=== PATIENT | female | born 1965 | race Caucasian/White ===

== ENCOUNTER 2016-06-26 12:17 | Inpatient (IN) | payer OTHER ==
[2016-06-26 15:03] VITALS: BMI 30.2
--- NOTE | 2016-06-26 17:07 | HP ---
COWS - Scale Resting Pulse: 1= [place] 81-100 Sweatin= Chills/Flushing Restless Observation: 3= Extraneous Movement Pupil Size: 2= Moderately Dilated Bone or Joint Aches: 4=Acute Joint/Muscle Pain Runny Nose/ Eye Tearin= Nasal Congestion GI Upset > 30mins: 1= Stomach Cramp Tremor Observation: 1= Tremor [place], Not Seen Yawning Observation: 2= >3x During Session Anxiety or Irritability: 1=Feels Anxious/Irritable Goose Flesh Skin: 0=Smooth Skin COWS Score: 17 [facility] Chief Complaint: DETOX TX FOR HEROIN DEPENDENCE Allergies/Adverse Reactions: Allergies Allergy/AdvReac Type Severity Reaction Status Date / Time egg Allergy Severe Rash Verified 06/26/16 16:28 No Known Drug Allergies Allergy Verified 06/26/16 16:28 History of Present Illness: 51 Y/O FEMALE WITH A HX OF HEROIN,COCAINE AND MARIJUANA DEPENDENCE SEEKING DETOX TX. Exam Limitations: No Limitations - Ebola screening Have you traveled outside of the country in the last 21 days: No Have you had contact with anyone from an Ebola affected area: No Have you been sick,other than usual withdrawal symptoms: No Do you have a fever: No - Review of Systems Constitutional: Chills, Loss of Appetite, Night Sweats, Changes in sleep EENT: reports: Blurred Vision, Tearing, Nose Congestion, Dental Problems ( MISSING TOOTH) Respiratory: reports: Shortness of Breath (COPD ON MDI-SPIRIVA AND ALBUTEROL), Wheezing Cardiac: reports: Lightheadedness GI: reports: Constipated, Diarrhea, Nausea, Poor Appetite, Poor Fluid Intake, Vomiting : reports: No Symptoms Reported Musculoskeletal: reports: Back Pain, Joint Pain, Muscle Pain Integumentary: reports: No Symptoms Reported Neuro: reports: Headache, Tremors, Unsteady Gait, Dizziness Endocrine: reports: No Symptoms Reported Hematology: reports: No Symptoms Reported Psychiatric: reports: Orientated x3, Anxious, Depressed Other Systems: Reviewed and Negative Patient History - Patient Medical History Hx Anemia: Yes (NO CURRENT TX) Hx Chronic Obstructive Pulmonary Disease (COPD): Yes (ON SPIRIVA AND ALBUTEROL INHALERS) Hx Cancer: No Hx Cardiac Disorders: No Hx Congestive Heart Failure: No Hx Hypertension: Yes (NON COMPLIANT WITH MEDS.) Hx Hypercholesterolemia: No Hx Pacemaker: No HX Cerebrovascular Accident: No Hx Seizures: No Hx Dementia: No Hx Diabetes: No Hx Gastrointestinal Disorders: No Hx Liver Disease: No Hx Genitourinary Disorders: No Hx Sexually Transmitted Disorders: No Hx Renal Disease (ESRD): No Hx Thyroid Disease: No Hx Human Immunodeficiency Virus (HIV): No ( NEGATIVE HX) Hx Hepatitis C: No (NEGATIVE HX) Hx Depression: Yes Hx Suicide Attempt: No (DENIES) Hx Bipolar Disorder: Yes (On meds. previously, none taken for at least 1 year.) Hx Schizophrenia: No - Patient Surgical History Past Surgical History: No Hx Neurologic Surgery: No Hx Cataract Extraction: No Hx Cardiac Surgery: No Hx Lung Surgery: No Hx Breast Surgery: No Hx Breast Biopsy: No Hx Abdominal Surgery: No Hx Appendectomy: No Hx Cholecystectomy: No Hx Genitourinary Surgery: No Hx Section: No Hx Orthopedic Surgery: No Hx Hysterectomy: No Anesthesia Reaction: No - PPD History Previous Implant?: Yes Documented Results: Negative w/proof Implanted On Prior [facility] Admission?: Yes Date: 03/14/16 Results: 0 MM PPD to be Administered?: No - Reproductive History Patient is a Female of Child Bearing Age (11 -55 yrs old): Yes Last Menstrual Period: 03/10/16 Patient : No - Smoking Cessation Smoking history: Current every day smoker Have you smoked in the past 12 months: Yes Aproximately how many cigarettes per day: 60 Cigars Per Day: 0 Hx Chewing Tobacco Use: No Initiated information on smoking cessation: Yes 'Breaking Loose' booklet given: 06/26/16 - Substance & Tx. History Hx Alcohol Use: No (DENIES) Hx Substance Use: Yes (HEROIN) Substance Use Type: Heroin Hx Substance Use Treatment: Yes - Substances Abused Heroin Route: Inhalation Frequency: Daily Amount used: 15 BAGS Age of first use: 49 Date of Last Use: 06/26/16 Family Disease History - Family Disease History Family Disease History: [place]: Grandparent (OVARIAN CANCER-), Father ( THROAT-), Other: Mother (ASTHMA.) Admission Physical Exam BHS - Vital Signs Vital Signs: Vital Signs - 24 hr 06/26/16 15:01 Temperature 98.6 F Pulse Rate 86 Respiratory 18 Rate Blood Pressure 132/80 - Physical General Appearance: Yes: Moderate Distress, Irritable, Anxious HEENTM: Yes: EOMI, Normocephalic, SHIVA, Pharynx Normal Respiratory: Yes: Chest Non-Tender, Lungs Clear, Normal Breath Sounds, No Respiratory Distress Neck: Yes: No masses,lesions,Nodules, Supple, Trachea in good position Breast: Yes: Breast Exam Deferred Cardiology: Yes: Regular Rhythm, Regular Rate, S1, S2 Abdominal: Yes: Normal Bowel Sounds, Non Tender, Soft Genitourinary: Yes: Other (N/C) Back: Yes: Within Normal Limits Musculoskeletal: Yes: full range of Motion, Gait Steady Extremities: Yes: Normal Range of Motion, Non-Tender Neurological: Yes: 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-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 NML intact, Fully Oriented, Alert Integumentary: Yes: Dry, Warm Lymphatic: Yes: Within Normal Limits - Diagnostic (1) COPD (chronic obstructive pulmonary disease) Current Visit: Yes Status: Chronic Qualifiers: COPD type: unspecified COPD Qualified Code(s): J44.9 - Chronic obstructive pulmonary disease, unspecified (2) HTN (hypertension) Current Visit: Yes Status: Chronic Qualifiers: Hypertension type: essential hypertension Qualified Code(s): I10 - Essential (primary) hypertension (3) Nicotine dependence Current Visit: Yes Status: Acute Qualifiers: Nicotine product type: cigarettes Substance use status: in withdrawal Qualified Code(s): F17.213 - Nicotine dependence, cigarettes, with withdrawal (4) Opioid dependence with withdrawal Current Visit: Yes Status: Acute (5) Cocaine dependence, uncomplicated Current Visit: Yes Status: Acute Cleared for Admission [facility] - Detox or Rehab [facility] Level of Care: Medically Managed Detox Regimen/Protocol: Methadone [facility] Breath Alcohol Content Breath Alcohol Content: 0 Urine Drug Screen - Results Drug Screen Negative: No Urine Drug Screen Results: MANJINDER-Cocaine, OPI-Opiates, OXY-Oxycodone
[2016-06-26] MEDS ORDERED: ACETAMINOPHEN 325 MG TABLET (FP) PO PRN (18:00)
[2016-06-26] MEDS ORDERED: P-EPHED 60MG/TRIPROLIDI 2.5MG TABLET PO PRN (18:00)
[2016-06-26] MEDS ORDERED: hydrOXYzine PAMOATE 25 MG CAPSULE (FP) PO PRN (18:00)
[2016-06-26] MEDS ORDERED: diphenhydrAMINE HCL 50 MG CAPSULE PO PRN (18:00)
[2016-06-26] MEDS ORDERED: MENTHOL/PHENOL 1 EACH UD MM PRN (18:00)
[2016-06-26] MEDS ORDERED: MAGNESIUM CITRATE 300 ML BOTTLE PO PRN (18:00)
[2016-06-26] MEDS ORDERED: NICOTINE POLACRILEX 4 MG GUM BC PRN (18:00)
[2016-06-26] MEDS ORDERED: guaiFENesin/D-METHORPHAN HB 10 ML UNIT-DOSE CUPS PO PRN (18:00)
[2016-06-26] MEDS ORDERED: LOPERAMIDE HCL 2 MG CAPSULE PO PRN (18:00)
[2016-06-26] MEDS ORDERED: MAGNESIUM HYDROX 2400MG/30ML ORAL SUSPENSION 30 ML CUP PO PRN (18:00)
[2016-06-26] MEDS ORDERED: ALBUTEROL SO4 6.7 GM HFA INHALER IH PRN (18:04)
[2016-06-26] MEDS ORDERED: METHADONE HCL 10 MG TABLET (FOR DETOX USE ONLY) PO ONE ×2 (18:45→23:00)
[2016-06-26] MEDS: NICOTINE 21 MG/24 HOURS TOPICAL PATCH TD SCH (19:09)
[2016-06-26] MEDS: amLODIPine BESYLATE 10 MG TABLET (FP) PO SCH (19:09)
[2016-06-26] MEDS: HYDROCHLOROTHIAZIDE 25 MG TABLET (FP) PO SCH (19:10)
[2016-06-26] MEDS: diazePAM 5 MG TABLET PO PRN ×2 (19:10→23:00)
[2016-06-26] MEDS: ACLIDINIUM BROMIDE 400 MCG/INH AERO.POWD IH SCH (22:59)
[2016-06-26] MEDS: THIAMINE HCL 100 MG TABLET (FP) PO SCH (23:00)
[2016-06-26] MEDS: BUDESONIDE/FORMETEROL FUMARATE 80/4.5 mcg INHALER IH SCH (23:00)
[2016-06-27] MEDS: diazePAM 5 MG TABLET PO PRN ×3 (07:51→21:07)
[2016-06-27] MEDS: IBUPROFEN 400 MG TABLET (FP) PO PRN ×2 (07:52→20:31)
[2016-06-27 09:41] LABS: MCH 29.2 pg (25.7-33.7); MCHC 32.3 g/dl (32.0-36.0); MEAN CELL VOLUME 90.2 fl (80-96); MEAN PLT VOLUME 10.6 fl (7.5-11.1); PLATELET COUNT 171 K/MM3 (134-434); RDW 14.1 % (11.6-15.6); WHITE BLOOD COUNT 7.7 K/mm3 (4.0-10.0)
[2016-06-27] MEDS ORDERED: METHADONE HCL 10 MG TABLET (FOR DETOX USE ONLY) PO ONE (10:00)
[2016-06-27] MEDS: PRENATAL VITAMINS W/ FOLIC ACID TABLET (FP) PO SCH (10:23)
[2016-06-27] MEDS: BUDESONIDE/FORMETEROL FUMARATE 80/4.5 mcg INHALER IH SCH ×2 (10:24→21:10)
[2016-06-27] MEDS: ACLIDINIUM BROMIDE 400 MCG/INH AERO.POWD IH SCH ×2 (10:24→21:10)
[2016-06-27] MEDS: amLODIPine BESYLATE 10 MG TABLET (FP) PO SCH (10:25)
[2016-06-27] MEDS: HYDROCHLOROTHIAZIDE 25 MG TABLET (FP) PO SCH (10:25)
[2016-06-27] MEDS: NICOTINE 21 MG/24 HOURS TOPICAL PATCH TD SCH (10:27)
[2016-06-27 10:35] LABS: ALBUMIN 4.1 g/dl (3.4-5.0); ALK PHOS 116 U/L (45-117); ANION GAP 11 (8-16); BILIRUBIN,TOTAL 0.3 mg/dL (0.2-1.0); CALCIUM 9.2 mg/dL (8.5-10.1); CO2 25 mmol/L (21-32); CREATININE 0.9 mg/dL (0.55-1.02); GLUCOSE,RANDOM 52 mg/dL (74-106); SGOT/AST 11 U/L (15-37); SGPT/ALT 17 U/L (12-78); TOT PROT 7.7 g/dl (6.4-8.2)
--- NOTE | 2016-06-27 11:21 | PN ---
BHS COWS - Scale Resting Pulse: 0= [place] 80 or Below Sweatin= Chills/Flushing Restless Observation: 1= Difficult to Sit Still Pupil Size: 1= Pupils >than Normal Bone or Joint Aches: 2= Severe Diffuse Aches Runny Nose/ Eye Tearin= Nasal Congestion GI Upset > 30mins: 1= Stomach Cramp Tremor Observation of Outstretched Hands: 0= None Yawning Observation: 0= None Anxiety or Irritability: 2=Irritable/Anxious Goose Flesh Skin: 0=Smooth Skin COWS Score: 9 BHS Progress Note (SOAP) Subjective: interrupted sleep, bodyaches, leg pains Objective: 06/27/16 11:21 Vital Signs Temperature 98.6 F 06/27/16 10:57 Pulse Rate 117 H 06/27/16 10:57 Respiratory Rate 16 06/27/16 10:57 Blood Pressure 163/89 06/27/16 10:57 O2 Sat by Pulse Oximetry (%) Laboratory Tests 06/27/16 06/27/16 06:00 06:00 WBC 7.7 D RBC 4.97 Hgb 14.5 Hct 44.8 MCV 90.2 MCHC 32.3 RDW 14.1 Plt Count 171 MPV 10.6 Sodium 139 Potassium 4.3 Chloride 103 Carbon Dioxide 25 Anion Gap 11 BUN 13 Creatinine 0.9 D Creat Clearance w eGFR > 60 Random Glucose 52 L D Calcium 9.2 Total Bilirubin 0.3 D AST 11 L ALT 17 D Alkaline Phosphatase 116 D Total Protein 7.7 Albumin 4.1 pt aox3 in nad ambulating Assessment: 06/27/16 11:21 withdrawal sx;s Plan: cont. detox increase fluids motrin prn flexeril tid/prn
[2016-06-27] MEDS: CYCLOBENZAPRINE HCL 10 MG TABLET (FP) PO PRN ×2 (12:06→21:07)
--- NOTE | 2016-06-27 12:09 | CONSULT ---
[facility] Psychiatric Consult - Data Date of interview: 06/27/16 Admission source: [facility] Identifying data: Readmission to [facility] for this 51 y/o female seeking detox treatment for heroin and cocaine dependence.Patient is single,a mother of one,domiciled,unemployed and supporeted on food stamps. Substance Abuse History: - Smoking Cessation. Smoking history: Current every day smoker. Have you smoked in the past 12 months: Yes. Aproximately how many cigarettes per day: 60. Cigars Per Day: 0. Hx Chewing Tobacco Use: No. Initiated information on smoking cessation: Yes. 'Breaking Loose' booklet given : 06/26/16. - Substance & Tx. History. Hx Alcohol Use: No (DENIES). Hx Substance Use: Yes (HEROIN). Substance Use Type: Heroin. Hx Substance Use Treatment: Yes. - Substances Abused. Heroin. Route: Inhalation. Frequency : Daily. Amount used: 15 BAGS. Age of first use: 49. Date of Last Use: . Confirmed by patient. Medical History: COPD and hypertension. Psychiatric History: Remote history of one psychiatric hopspitalization at [facility] in [place] (10 years ago).Diagnosed with Bipolar Disorder.Used to be on seroquel,ambien,trazodone and sertraline.Patient states that she is in [facility] the [place].Ms Fisher requests that seroquel and zoloft be added to her current regimen of medications.No reported history of suicide attempts. Physical/Sexual Abuse/Trauma History: Patient denies. Additional Comment: Urine Drug Screen Results: MANJINDER-Cocaine, OPI-Opiates, OXY- Oxycodone.Noted. Mental Status Exam - Mental Status Exam Alert and Oriented to: Time, Place, Person Cognitive Function: Good Patient Appearance: Unkempt, Disheveled (pierced/ringed right nostril ) Mood: Withdrawn, Anxious, Apprehensive Affect: Mood Congruent Patient Behavior: Fatigued, Appropriate, Cooperative Speech Pattern: Clear Voice Loudness: Normal Thought Process: Goal Oriented Thought Disorder: Not Present Hallucinations: Denies Suicidal Ideation: Denies Homicidal Ideation: Denies Insight/Judgement: Poor Sleep: Well Appetite: Good Muscle strength/Tone: Normal Gait/Station: Normal Psychiatric Findings - Problem List ([place] 1, 2,3) (1) Opioid dependence with withdrawal Current Visit: Yes Status: Acute (2) Cocaine dependence, uncomplicated Current Visit: Yes Status: Acute (3) Cannabis dependence, uncomplicated Current Visit: Yes Status: Acute (4) Nicotine dependence Current Visit: Yes Status: Acute Qualifiers: Nicotine product type: cigarettes Substance use status: in withdrawal Qualified Code(s): F17.213 - Nicotine dependence, cigarettes, with withdrawal (5) Substance induced mood disorder Current Visit: Yes Status: Acute (6) MDD (major depressive disorder), recurrent episode, moderate Current Visit: Yes Status: Chronic (7) COPD (chronic obstructive pulmonary disease) Current Visit: Yes Status: Chronic Qualifiers: COPD type: unspecified COPD Qualified Code(s): J44.9 - Chronic obstructive pulmonary disease, unspecified (8) HTN (hypertension) Current Visit: Yes Status: Chronic Qualifiers: Hypertension type: essential hypertension Qualified Code(s): I10 - Essential (primary) hypertension - Initial Treatment Plan Initial Treatment Plan: Psychoeducation.Detoxification.Medications : seroquel 100 mg po hs + zoloft 50 mg po daily.Side effects/benefits discussed with patient.Agrees with this careplan.Observation.
[2016-06-27] MEDS: SERTRALINE HCL 50 MG TABLET (FP) PO SCH (14:11)
[2016-06-27] MEDS: THIAMINE HCL 100 MG TABLET (FP) PO SCH (21:07)
[2016-06-27] MEDS: QUEtiapine FUMARATE 100 MG TABLET (FP) PO SCH (21:07)
--- NOTE | 2016-06-27 23:39 | EKG ---
Test Reason : Blood Pressure : / mmHG Vent. Rate : 070 BPM Atrial Rate : 070 BPM P-R Int : 156 ms QRS Dur : 084 ms QT Int : 404 ms P-R-T Axes : 018 076 021 degrees QTc Int : 436 ms NORMAL SINUS RHYTHM NONSPECIFIC T WAVE ABNORMALITY ABNORMAL ECG NO PREVIOUS ECGS AVAILABLE Confirmed by JAS SLATER MD ([id number]) on 06/27/2016 11:39:06 PM Referred By: Confirmed By:JAS SLATER MD
[2016-06-28] MEDS: CYCLOBENZAPRINE HCL 10 MG TABLET (FP) PO PRN ×2 (07:37→22:41)
[2016-06-28] MEDS ORDERED: METHADONE HCL 5 MG TABLET (FOR DETOX USE ONLY) PO ONE (10:00)
[2016-06-28] MEDS: HYDROCHLOROTHIAZIDE 25 MG TABLET (FP) PO SCH (10:43)
[2016-06-28] MEDS: amLODIPine BESYLATE 10 MG TABLET (FP) PO SCH (10:43)
[2016-06-28] MEDS: PRENATAL VITAMINS W/ FOLIC ACID TABLET (FP) PO SCH (10:43)
[2016-06-28] MEDS: SERTRALINE HCL 50 MG TABLET (FP) PO SCH (10:43)
[2016-06-28] MEDS: BUDESONIDE/FORMETEROL FUMARATE 80/4.5 mcg INHALER IH SCH ×2 (10:44→22:57)
[2016-06-28] MEDS: ACLIDINIUM BROMIDE 400 MCG/INH AERO.POWD IH SCH ×2 (10:48→22:56)
[2016-06-28] MEDS: NICOTINE 21 MG/24 HOURS TOPICAL PATCH TD SCH (10:50)
--- NOTE | 2016-06-28 11:11 | PN ---
BHS COWS - Scale Resting Pulse: 2= [place] 101-120 Sweatin= Chills/Flushing Restless Observation: 0= Sits Still Pupil Size: 0= Normal to Room Light Bone or Joint Aches: 2= Severe Diffuse Aches Runny Nose/ Eye Tearin= Nasal Congestion GI Upset > 30mins: 0= None Tremor Observation of Outstretched Hands: 2= Slight Tremor Visible Yawning Observation: 2= >3x During Session Anxiety or Irritability: 2=Irritable/Anxious Goose Flesh Skin: 0=Smooth Skin COWS Score: 12 BHS Progress Note (SOAP) Subjective: chills sweats irritable tearing eyes body aches Objective: 06/28/16 11:09 Vital Signs Temperature 98.4 F 06/28/16 10:03 Pulse Rate 104 H 06/28/16 10:03 Respiratory Rate 18 06/28/16 10:03 Blood Pressure 130/73 06/28/16 10:03 O2 Sat by Pulse Oximetry (%) Laboratory Tests 06/27/16 06/27/16 06/27/16 06:00 06:00 06:00 WBC 7.7 D RBC 4.97 Hgb 14.5 Hct 44.8 MCV 90.2 MCHC 32.3 RDW 14.1 Plt Count 171 MPV 10.6 Sodium 139 Potassium 4.3 Chloride 103 Carbon Dioxide 25 Anion Gap 11 BUN 13 Creatinine 0.9 D Creat Clearance w eGFR > 60 Random Glucose 52 L D Calcium 9.2 Total Bilirubin 0.3 D AST 11 L ALT 17 D Alkaline Phosphatase 116 D Total Protein 7.7 Albumin 4.1 RPR Titer Nonreactive labs pending for u/a awake/alert ambulating no acute distress Assessment: 06/28/16 11:11 withdrawal sx Plan: continue detox increase fluids labs pending
[2016-06-28] MEDS ORDERED: cloNIDine HCL 0.1 MG TABLET PO ONE (14:53)
[2016-06-28] MEDS ORDERED: cloNIDine HCL 0.1 MG TABLET ONE (14:57)
[2016-06-28 21:08] LABS: URINE APPEARANCE CLEAR; URINE BILIRUBIN NEGATIVE (NEGATIVE); URINE BLOOD NEGATIVE (NEGATIVE); URINE COLOR YELLOW; URINE GLUCOSE (UA) NEGATIVE (NEGATIVE); URINE KETONE NEGATIVE (NEGATIVE); URINE LEUK ESTERASE NEGATIVE (NEGATIVE); URINE NITRITE NEGATIVE (NEGATIVE); URINE PROTEIN NEGATIVE (NEGATIVE); URINE UROBILINOGEN NEGATIVE E.U./dl (0.2-1.0)
[2016-06-28] MEDS: diazePAM 5 MG TABLET PO PRN (22:41)
[2016-06-28] MEDS: cloNIDine HCL 0.1 MG TABLET PO SCH (22:42)
[2016-06-28] MEDS: THIAMINE HCL 100 MG TABLET (FP) PO SCH (22:42)
[2016-06-28] MEDS: QUEtiapine FUMARATE 100 MG TABLET (FP) PO SCH (22:42)
[2016-06-29] MEDS ORDERED: METHADONE HCL 5 MG TABLET (FOR DETOX USE ONLY) PO ONE (10:00)
[2016-06-29] MEDS: amLODIPine BESYLATE 10 MG TABLET (FP) PO SCH (11:21)
[2016-06-29] MEDS: PRENATAL VITAMINS W/ FOLIC ACID TABLET (FP) PO SCH (11:21)
[2016-06-29] MEDS: HYDROCHLOROTHIAZIDE 25 MG TABLET (FP) PO SCH (11:22)
[2016-06-29] MEDS: SERTRALINE HCL 50 MG TABLET (FP) PO SCH (11:22)
[2016-06-29] MEDS: cloNIDine HCL 0.1 MG TABLET PO SCH ×2 (11:22→22:44)
[2016-06-29] MEDS: diazePAM 5 MG TABLET PO PRN ×2 (11:23→17:19)
[2016-06-29] MEDS: NICOTINE 21 MG/24 HOURS TOPICAL PATCH TD SCH (11:23)
[2016-06-29] MEDS: BUDESONIDE/FORMETEROL FUMARATE 80/4.5 mcg INHALER IH SCH ×2 (11:27→22:43)
[2016-06-29] MEDS: ACLIDINIUM BROMIDE 400 MCG/INH AERO.POWD IH SCH ×2 (11:27→23:51)
[2016-06-29] MEDS: QUEtiapine FUMARATE 100 MG TABLET (FP) PO SCH (22:44)
[2016-06-29] MEDS: THIAMINE HCL 100 MG TABLET (FP) PO SCH (22:44)
[2016-06-29] MEDS: CYCLOBENZAPRINE HCL 10 MG TABLET (FP) PO PRN (22:44)
[2016-06-30] MEDS: MAG HYDROX/AL HYDROX/SIMETH 30 ML UNIT-DOSE CUP PO PRN ×2 (00:01)
[2016-06-30] MEDS ORDERED: METHADONE HCL 10 MG TABLET (FOR DETOX USE ONLY) PO ONE ×2 (09:47→10:00)
[2016-06-30 10:19] VITALS: BP 120/82; PULSE 87; TEMP 97.7
[2016-06-30] MEDS: amLODIPine BESYLATE 10 MG TABLET (FP) PO SCH (10:45)
[2016-06-30] MEDS: PRENATAL VITAMINS W/ FOLIC ACID TABLET (FP) PO SCH (10:45)
[2016-06-30] MEDS: HYDROCHLOROTHIAZIDE 25 MG TABLET (FP) PO SCH (10:45)
[2016-06-30] MEDS: NICOTINE 21 MG/24 HOURS TOPICAL PATCH TD SCH (10:45)
[2016-06-30] MEDS: cloNIDine HCL 0.1 MG TABLET PO SCH (10:45)
[2016-06-30] MEDS: SERTRALINE HCL 50 MG TABLET (FP) PO SCH (10:46)
[2016-06-30] MEDS: ACLIDINIUM BROMIDE 400 MCG/INH AERO.POWD IH SCH (10:46)
[2016-06-30] MEDS: BUDESONIDE/FORMETEROL FUMARATE 80/4.5 mcg INHALER IH SCH (10:46)
--- NOTE | 2016-06-30 11:35 | PN ---
BHS Progress Note Note: i feel better and need to leave now.
--- NOTE | 2016-06-30 11:37 | DS ---
[facility] Detox Discharge Summary Admission Date: 06/26/16 Discharge Date: 06/30/16 - History Present History: Cannabis Dependence, Cocaine Dependence, Opioid Dependence - Physical Exam Results Vital Signs: Vital Signs Temperature 97.7 F 06/30/16 10:18 Pulse Rate 87 06/30/16 10:18 Respiratory Rate 16 06/30/16 10:18 Blood Pressure 120/82 06/30/16 10:18 O2 Sat by Pulse Oximetry (%) - Treatment Hospital Course: Detox Protocol Followed, Detoxed Safely, Responded well, Discharged Condition Good, Rehab Referral Accepted - Medication Discharge Medications: Ambulatory Orders Quetiapine Fumarate [Seroquel -] 100 mg PO HS #30 tab 12/12/14 Albuterol Sulfate Inhaler - [Ventolin HFA Inhaler -] 2 inh PO Q4H PRN #1 inhaler 12/16/14 Budesonide/Formeterol Fumarate [SYMBICORT 80/4.5mcg -] 1 puff IH BID #1 inhaler 12/16/14 Tiotropium [place] [Spiriva] 1 inh PO DAILY #1 inh 12/16/14 Amlodipine Besylate [Norvasc -] 10 mg PO DAILY 03/12/16 Hydrochlorothiazide [Hctz -] 25 mg PO DAILY 03/12/16 Sertraline HCl [Zoloft -] 50 mg PO DAILY #30 03/13/16 Quetiapine Fumarate [Seroquel] 100 mg PO HS #30 tablet 06/27/16 Sertraline HCl [Zoloft] 100 mg PO DAILY #30 tablet 06/27/16 - Diagnosis (1) Cannabis dependence, uncomplicated Current Visit: Yes Status: Chronic (2) Cocaine dependence, uncomplicated Current Visit: Yes Status: Chronic (3) Nicotine dependence Current Visit: Yes Status: Chronic Qualifiers: Nicotine product type: cigarettes Substance use status: uncomplicated Qualified Code(s): F17.210 - Nicotine dependence, cigarettes, uncomplicated (4) Opioid dependence with withdrawal Current Visit: Yes Status: Chronic (5) Substance induced mood disorder Current Visit: Yes Status: Acute (6) COPD (chronic obstructive pulmonary disease) Current Visit: Yes Status: Chronic Qualifiers: COPD type: unspecified COPD Qualified Code(s): J44.9 - Chronic obstructive pulmonary disease, unspecified (7) HTN (hypertension) Current Visit: Yes Status: Chronic Qualifiers: Hypertension type: essential hypertension Qualified Code(s): I10 - Essential (primary) hypertension (8) MDD (major depressive disorder), recurrent episode, moderate Current Visit: Yes Status: Chronic (9) Depression Current Visit: No Status: Chronic - AMA Did Patient Leave Against Medical Advice: Yes
[2016-07-01] MEDS ORDERED: METHADONE HCL 5 MG TABLET (FOR DETOX USE ONLY) PO ONE (06:00)
== END 2016-06-30 11:34 | disposition left against medical advice (07) | DRG 770 ==
LOC: YASAS 12:17 → Y6N 18:22
PROVIDERS: ADMIT Internal Medicine Addiction Medicine; ATTEND Internal Medicine Addiction Medicine
PROC: HZ2ZZZZ Detoxification Services for Substance Abuse Treatment (ICD-10-PCS; principal; 2016-06-30)
DX: F11.20 Opioid dependence, uncomplicated (principal); F14.20 Cocaine dependence, uncomplicated; F12.20 Cannabis dependence, uncomplicated; F17.210 Nicotine dependence, cigarettes, uncomplicated; F33.1 Major depressive disorder, recurrent, moderate; F19.24 Other psychoactive substance dependence with psychoactive substance-induced mood disorder; I10 Essential (primary) hypertension; J44.9 Chronic obstructive pulmonary disease, unspecified
CPT/HCPCS: 36415; 80053; 81003; 85027; 86593; 93005; 93010

== ENCOUNTER 2016-07-24 11:56 | Inpatient (IN) | payer OTHER ==
[2016-07-24 13:52] VITALS: BMI 30.7
--- NOTE | 2016-07-24 17:25 | HP ---
COWS - Scale Resting Pulse: 0= [place] 80 or Below Sweatin= Chills/Flushing Restless Observation: 3= Extraneous Movement Pupil Size: 2= Moderately Dilated Bone or Joint Aches: 4=Acute Joint/Muscle Pain Runny Nose/ Eye Tearin= Nasal Congestion GI Upset > 30mins: 2= Nausea/Diarrhea Tremor Observation: 2= Slight Tremor Visible Yawning Observation: 1= 1-2x During Session Anxiety or Irritability: 2=Irritable/Anxious Goose Flesh Skin: 0=Smooth Skin COWS Score: 18 Admission ROS S - HPI Chief Complaint: DETOX TX FOR HEROIN DEPENDENCE. Allergies/Adverse Reactions: Allergies Allergy/AdvReac Type Severity Reaction Status Date / Time egg Allergy Severe Rash Verified 07/24/16 16:52 No Known Drug Allergies Allergy Verified 07/24/16 16:52 History of Present Illness: 51 Y/O H/FEMALE WITH A HX OF HEROIN/STREET METAHDONE /COCAINE DEPENDENCE SEEKING DETOX TX. Exam Limitations: No Limitations - Ebola screening Have you traveled outside of the country in the last 21 days: No (N) Have you had contact with anyone from an Ebola affected area: No Have you been sick,other than usual withdrawal symptoms: No Do you have a fever: No - Review of Systems Constitutional: Chills, Night Sweats, Changes in sleep EENT: reports: Blurred Vision (WEARS GLASSES), Tearing, Nose Congestion, Dental Problems (MISSING TEETH) Respiratory: reports: Shortness of Breath (HX COPD), Wheezing GI: reports: Constipated, Diarrhea, Nausea, Poor Fluid Intake, Vomiting : reports: No Symptoms Reported Musculoskeletal: reports: Back Pain, Muscle Pain Integumentary: reports: No Symptoms Reported Neuro: reports: Headache (HX MIGRAINES), Unsteady Gait (WALKS WITH A LIMP SOMETIMES .), Dizziness Endocrine: reports: No Symptoms Reported Hematology: reports: No Symptoms Reported Psychiatric: reports: Orientated x3, Anxious, Depressed Other Systems: Reviewed and Negative Patient History - Patient Medical History Hx Anemia: Yes (NO CURRENT TX) Hx Asthma: No Hx Chronic Obstructive Pulmonary Disease (COPD): Yes Hx Cancer: No Hx Cardiac Disorders: No Hx Congestive Heart Failure: No Hx Hypertension: Yes (non compliants) Hx Hypercholesterolemia: No Hx Pacemaker: No HX Cerebrovascular Accident: No Hx Seizures: No Hx Dementia: No Hx Diabetes: No Hx Gastrointestinal Disorders: No Hx Liver Disease: No Hx Genitourinary Disorders: No Hx Sexually Transmitted Disorders: Yes (GENITAL HERPES HX ) Hx Renal Disease (ESRD): No Hx Thyroid Disease: No Hx Human Immunodeficiency Virus (HIV): No ( NEGATIVE HX) Hx Hepatitis C: No (NEGATIVE HX) Hx Depression: Yes (ON MEDS) Hx Suicide Attempt: No (DENIES) Hx Bipolar Disorder: Yes (NOT TAKING DUE TO USING HEROIN/COCAINE) Hx Schizophrenia: No - Patient Surgical History Past Surgical History: No Hx Neurologic Surgery: No Hx Cataract Extraction: No Hx Cardiac Surgery: No Hx Lung Surgery: No Hx Breast Surgery: No Hx Breast Biopsy: No Hx Abdominal Surgery: No Hx Appendectomy: No Hx Cholecystectomy: No Hx Genitourinary Surgery: No Hx Section: No Hx Orthopedic Surgery: No Hx Hysterectomy: No Anesthesia Reaction: No - PPD History Previous Implant?: Yes Documented Results: Negative w/proof Implanted On Prior [facility] Admission?: Yes Date: 03/14/16 Results: 0 mm PPD to be Administered?: No - Reproductive History Patient is a Female of Child Bearing Age (11 -55 yrs old): Yes LMP comment: 2-3 YRS AGO Patient : No - Smoking Cessation Smoking history: Current every day smoker Have you smoked in the past 12 months: Yes Aproximately how many cigarettes per day: 60 Cigars Per Day: 0 Hx Chewing Tobacco Use: No Initiated information on smoking cessation: Yes 'Breaking Loose' booklet given: 07/24/16 - Substance & Tx. History Hx Substance Use: Yes (HEROIN/CRACK/STREET METHADONE) Substance Use Type: Cocaine, Heroin, Opiates Hx Substance Use Treatment: Yes ([facility]-DETOX) - Substances Abused Heroin Route: Inhalation Frequency: Daily Amount used: 15 bags Age of first use: 51 Date of Last Use: 07/24/16 Crack Route: Smoking Frequency: Daily Amount used: $20 Age of first use: 22 Date of Last Use: 07/23/16 street methadone Route: Oral Frequency: 1-3 times last 30 days Amount used: 1 capful Age of first use: 51 Date of Last Use: 07/23/16 Family Disease History - Family Disease History Family Disease History: [place]: Grandparent (OVARIAN CANCER-), Father ( THROAT-), Other: Mother (ASTHMA.) Admission Physical Exam [facility] - Vital Signs Vital Signs: Vital Signs - 24 hr 07/24/16 13:48 Temperature 97.4 F L Pulse Rate 79 Respiratory 20 Rate Blood Pressure 133/85 - Physical General Appearance: Yes: Moderate Distress, Irritable, Anxious HEENTM: Yes: EOMI, Normocephalic, SHIVA, Pharynx Normal, Nasal Congestion Respiratory: Yes: Chest Non-Tender, Lungs Clear, Normal Breath Sounds, No Respiratory Distress Neck: Yes: Supple, Trachea in good position Breast: Yes: Breast Exam Deferred Cardiology: Yes: Regular Rhythm, Regular Rate, S1, S2 Abdominal: Yes: Normal Bowel Sounds, Non Tender, Soft Genitourinary: Yes: Other (N/C) Back: Yes: Within Normal Limits Musculoskeletal: Yes: full range of Motion, Gait Steady Extremities: Yes: Normal Range of Motion, Non-Tender 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 NML intact, Fully Oriented, Alert Integumentary: Yes: Dry, Warm Lymphatic: Yes: Within Normal Limits - Diagnostic (1) COPD (chronic obstructive pulmonary disease) Current Visit: Yes Status: Chronic Qualifiers: COPD type: unspecified COPD Qualified Code(s): J44.9 - Chronic obstructive pulmonary disease, unspecified (2) Cocaine dependence, uncomplicated Current Visit: Yes Status: Acute (3) HTN (hypertension) Current Visit: Yes Status: Chronic Qualifiers: Hypertension type: essential hypertension Qualified Code(s): I10 - Essential (primary) hypertension (4) Nicotine dependence Current Visit: Yes Status: Acute Qualifiers: Nicotine product type: cigarettes Substance use status: in withdrawal Qualified Code(s): F17.213 - Nicotine dependence, cigarettes, with withdrawal (5) Opioid dependence with withdrawal Current Visit: Yes Status: Acute (6) History of anemia Current Visit: Yes Status: Suspected Cleared for Admission [facility] - Detox or Rehab [facility] Level of Care: Medically Managed Detox Regimen/Protocol: Methadone [facility] Breath Alcohol Content Breath Alcohol Content: 0 Urine Pregancy Test - Result Urine Test Results: Negative- NO Line Present Urine Drug Screen - Results Drug Screen Negative: No Urine Drug Screen Results: MANJINDER-Cocaine, BZO-Benzodiazepines, MTD-Methadone
[2016-07-24] MEDS ORDERED: hydrOXYzine PAMOATE 25 MG CAPSULE (FP) PO PRN (17:37)
[2016-07-24] MEDS ORDERED: NICOTINE POLACRILEX 4 MG GUM BC PRN (17:37)
[2016-07-24] MEDS ORDERED: MENTHOL/PHENOL 1 EACH UD MM PRN (17:37)
[2016-07-24] MEDS ORDERED: P-EPHED 60MG/TRIPROLIDI 2.5MG TABLET PO PRN (17:37)
[2016-07-24] MEDS ORDERED: MAG HYDROX/AL HYDROX/SIMETH 30 ML UNIT-DOSE CUP PO PRN (17:37)
[2016-07-24] MEDS ORDERED: MAGNESIUM HYDROX 2400MG/30ML ORAL SUSPENSION 30 ML CUP PO PRN (17:37)
[2016-07-24] MEDS ORDERED: ACETAMINOPHEN 325 MG TABLET (FP) PO PRN (17:37)
[2016-07-24] MEDS ORDERED: MAGNESIUM CITRATE 300 ML BOTTLE PO PRN (17:37)
[2016-07-24] MEDS ORDERED: LOPERAMIDE HCL 2 MG CAPSULE PO PRN (17:37)
[2016-07-24] MEDS ORDERED: guaiFENesin/D-METHORPHAN HB 10 ML UNIT-DOSE CUPS PO PRN (17:37)
[2016-07-24] MEDS ORDERED: ALBUTEROL SO4 6.7 GM HFA INHALER IH PRN (17:41)
[2016-07-24] MEDS ORDERED: METHADONE HCL 10 MG TABLET (FOR DETOX USE ONLY) PO ONE ×2 (18:45→23:00)
[2016-07-24] MEDS: amLODIPine BESYLATE 10 MG TABLET (FP) PO SCH (19:24)
[2016-07-24] MEDS: diazePAM 5 MG TABLET PO PRN ×2 (19:24→23:34)
[2016-07-24] MEDS: NICOTINE 21 MG/24 HOURS TOPICAL PATCH TD SCH (19:25)
[2016-07-24] MEDS: HYDROCHLOROTHIAZIDE 25 MG TABLET (FP) PO SCH (19:27)
[2016-07-24] MEDS: diphenhydrAMINE HCL 50 MG CAPSULE PO PRN (22:17)
[2016-07-24] MEDS: THIAMINE HCL 100 MG TABLET (FP) PO SCH (22:17)
[2016-07-24] MEDS: BUDESONIDE/FORMETEROL FUMARATE 80/4.5 mcg INHALER IH SCH (22:19)
[2016-07-24] MEDS: ACLIDINIUM BROMIDE 400 MCG/INH AERO.POWD IH SCH (22:19)
[2016-07-25] MEDS: diazePAM 5 MG TABLET PO PRN ×4 (05:51→22:21)
[2016-07-25 09:56] LABS: MCH 29.5 pg (25.7-33.7); MCHC 32.7 g/dl (32.0-36.0); MEAN CELL VOLUME 90.3 fl (80-96); MEAN PLT VOLUME 11.1 fl (7.5-11.1); PLATELET COUNT 165 K/MM3 (134-434); WHITE BLOOD COUNT 9.7 K/mm3 (4.0-10.0)
[2016-07-25] MEDS ORDERED: METHADONE HCL 10 MG TABLET (FOR DETOX USE ONLY) PO ONE (10:00)
[2016-07-25 10:02] LABS: URINE APPEARANCE CLEAR; URINE BILIRUBIN NEGATIVE (NEGATIVE); URINE BLOOD NEGATIVE (NEGATIVE); URINE COLOR STRAW; URINE GLUCOSE (UA) NEGATIVE (NEGATIVE); URINE KETONE NEGATIVE (NEGATIVE); URINE LEUK ESTERASE NEGATIVE (NEGATIVE); URINE NITRITE NEGATIVE (NEGATIVE); URINE PROTEIN NEGATIVE (NEGATIVE); URINE UROBILINOGEN NEGATIVE E.U./dl (0.2-1.0)
--- NOTE | 2016-07-25 10:10 | CONSULT ---
[facility] Psychiatric Consult - Data Date of interview: 07/25/16 Admission source: [facility] Identifying data: Another admission to [facility] for this 51 y/o female seeking detox treatment for heroin and cocaine dependence.Patient is single,a mother of one,domiciled,unemployed and supported on food stamps. Substance Abuse History: - Smoking Cessation. Smoking history: Current every day smoker. Have you smoked in the past 12 months: Yes. Aproximately how many cigarettes per day: 60. Cigars Per Day: 0. Hx Chewing Tobacco Use: No. Initiated information on smoking cessation: Yes. 'Breaking Loose' booklet given : 07/24/16. - Substance & Tx. History. Hx Substance Use: Yes (HEROIN/CRACK/ STREET METHADONE). Substance Use Type: Cocaine, Heroin, Opiates. Hx Substance Use Treatment: Yes ([facility]). - Substances Abused. Heroin. Route: Inhalation. Frequency: Daily. Amount used: 15 bags. Age of first use: 51. Date of Last Use: 07/24/16. Crack. Route: Smoking. Frequency: Daily. Amount used: $20. Age of first use: 22. Date of Last Use: 07/23/16. street methadone. Route: Oral. Frequency: 1-3 times last 30 days. Amount used : 1 capful. Age of first use: 51. Date of Last Use: 07/23/16. Confirmed by patient. Medical History: History of anemia,genital herpes,COPD and hypertension. Psychiatric History: History of one psychiatric admission to [facility] in [place] (10 years ago).Diagnosed with Bipolar Disorder.Patient states that she is seeing a private psychiatrist in the [place].Ms Fisher requests that seroquel and zoloft be added to her current regimen of medications.No reported history of suicide attempts. Physical/Sexual Abuse/Trauma History: Patient denies. Additional Comment: Urine Drug Screen Results: MANJINDER-Cocaine, BZO-Benzodiazepines , MTD-Methadone.Noted. Mental Status Exam - Mental Status Exam Alert and Oriented to: Time, Place, Person Cognitive Function: Good Patient Appearance: Unkempt, Disheveled Mood: Withdrawn, Anxious Affect: Mood Congruent Patient Behavior: Fatigued, Appropriate, Cooperative Speech Pattern: Clear Voice Loudness: Normal Thought Process: Goal Oriented Thought Disorder: Not Present Hallucinations: Denies Suicidal Ideation: Denies Homicidal Ideation: Denies Insight/Judgement: Poor Sleep: Poorly, Difficulty falling asleep Appetite: Good Muscle strength/Tone: Normal Gait/Station: Other (walks with a limp) Psychiatric Findings - Problem List ([place] 1, 2,3) (1) Cocaine dependence, uncomplicated Current Visit: Yes Status: Acute (2) Opioid dependence with withdrawal Current Visit: Yes Status: Acute (3) Nicotine dependence Current Visit: Yes Status: Acute Qualifiers: Nicotine product type: cigarettes Substance use status: in withdrawal Qualified Code(s): F17.213 - Nicotine dependence, cigarettes, with withdrawal (4) Cannabis dependence, uncomplicated Current Visit: Yes Status: Acute (5) Substance induced mood disorder Current Visit: Yes Status: Acute (6) MDD (major depressive disorder), recurrent episode, moderate Current Visit: Yes Status: Chronic (7) COPD (chronic obstructive pulmonary disease) Current Visit: Yes Status: Chronic Qualifiers: COPD type: unspecified COPD Qualified Code(s): J44.9 - Chronic obstructive pulmonary disease, unspecified (8) HTN (hypertension) Current Visit: Yes Status: Chronic Qualifiers: Hypertension type: essential hypertension Qualified Code(s): I10 - Essential (primary) hypertension (9) History of anemia Current Visit: Yes Status: Suspected (10) Insomnia Current Visit: Yes Status: Acute - Initial Treatment Plan Initial Treatment Plan: Psychoeducation.Detoxification.Medications : seroquel 100 mg po hs + zoloft 50 mg po daily.Side effects/benefits discussed with the patient.She agrees with this careplan.Observation.
[2016-07-25] MEDS: HYDROCHLOROTHIAZIDE 25 MG TABLET (FP) PO SCH (10:33)
[2016-07-25] MEDS: amLODIPine BESYLATE 10 MG TABLET (FP) PO SCH (10:33)
[2016-07-25] MEDS: PRENATAL VITAMINS W/ FOLIC ACID TABLET (FP) PO SCH (10:33)
[2016-07-25] MEDS: ACLIDINIUM BROMIDE 400 MCG/INH AERO.POWD IH SCH ×2 (10:33→22:47)
[2016-07-25] MEDS: IBUPROFEN 400 MG TABLET (FP) PO PRN ×2 (10:36→22:21)
[2016-07-25 10:37] LABS: ALK PHOS 111 U/L (45-117); ANION GAP 8 (8-16); BILIRUBIN,TOTAL 0.3 mg/dL (0.2-1.0); CALCIUM 9.1 mg/dL (8.5-10.1); CO2 28 mmol/L (21-32); CREATININE 0.8 mg/dL (0.55-1.02); GLUCOSE,RANDOM 85 mg/dL (74-106); SGOT/AST 11 U/L (15-37); SGPT/ALT 16 U/L (12-78); TOT PROT 7.2 g/dl (6.4-8.2)
[2016-07-25] MEDS: NICOTINE 21 MG/24 HOURS TOPICAL PATCH TD SCH (10:37)
--- NOTE | 2016-07-25 11:34 | PN ---
BHS COWS - Scale Resting Pulse: 1= [place] 81-100 Sweatin= Chills/Flushing Restless Observation: 1= Difficult to Sit Still Pupil Size: 1= Pupils >than Normal Bone or Joint Aches: 2= Severe Diffuse Aches Runny Nose/ Eye Tearin= Nasal Congestion GI Upset > 30mins: 1= Stomach Cramp Tremor Observation of Outstretched Hands: 1= Tremor Mentor, Not Seen Yawning Observation: 0= None Anxiety or Irritability: 1=Feels Anxious/Irritable Goose Flesh Skin: 0=Smooth Skin COWS Score: 10 BHS Progress Note (SOAP) Subjective: interrupted sleep,sweats, shakes, bodyache s Objective: 07/25/16 11:33 Vital Signs Temperature 98.2 F 07/25/16 09:55 Pulse Rate 73 07/25/16 09:55 Respiratory Rate 16 07/25/16 09:55 Blood Pressure 106/64 07/25/16 09:55 O2 Sat by Pulse Oximetry (%) Laboratory Tests 07/25/16 07/25/16 07/25/16 06:00 06:00 07:00 WBC 9.7 RBC 4.72 Hgb 13.9 Hct 42.6 MCV 90.3 MCHC 32.7 RDW 14.0 Plt Count 165 MPV 11.1 Sodium 139 Potassium 4.6 Chloride 103 Carbon Dioxide 28 Anion Gap 8 BUN 13 Creatinine 0.8 Creat Clearance w eGFR > 60 Random Glucose 85 D Calcium 9.1 Total Bilirubin 0.3 AST 11 L ALT 16 Alkaline Phosphatase 111 Total Protein 7.2 Albumin 4.0 Urine Color Straw Urine Appearance Clear Urine pH 7.0 Ur Specific [place] 1.009 Urine Protein Negative Urine Glucose (UA) Negative Urine Ketones Negative Urine Blood Negative Urine Nitrite Negative Urine Bilirubin Negative Urine Urobilinogen Negative Ur Leukocyte Esterase Negative 07/25/16 14:58 pt aox3 ambulating in nad Assessment: 07/25/16 11:33 withdrawal sx's 07/25/16 14:58 Plan: cont. detox increase fluids motrin prn
[2016-07-25] MEDS: BUDESONIDE/FORMETEROL FUMARATE 80/4.5 mcg INHALER IH SCH ×2 (12:26→22:24)
[2016-07-25] MEDS: QUEtiapine FUMARATE 100 MG TABLET (FP) PO SCH (22:22)
[2016-07-25] MEDS: THIAMINE HCL 100 MG TABLET (FP) PO SCH (22:47)
--- NOTE | 2016-07-25 23:08 | EKG ---
Test Reason : Blood Pressure : / mmHG Vent. Rate : 076 BPM Atrial Rate : 076 BPM P-R Int : 154 ms QRS Dur : 082 ms QT Int : 400 ms P-R-T Axes : 016 068 021 degrees QTc Int : 450 ms NORMAL SINUS RHYTHM NORMAL ECG WHEN COMPARED WITH ECG OF 26-JUN-2016 18:14, NO SIGNIFICANT CHANGE WAS FOUND Confirmed by JAS SLATER MD ([id number]) on 07/25/2016 11:07:48 PM Referred By: Confirmed By:JAS SLATER MD
[2016-07-26] MEDS: IBUPROFEN 400 MG TABLET (FP) PO PRN (09:49)
[2016-07-26] MEDS ORDERED: METHADONE HCL 5 MG TABLET (FOR DETOX USE ONLY) PO ONE (10:00)
[2016-07-26] MEDS: PRENATAL VITAMINS W/ FOLIC ACID TABLET (FP) PO SCH (10:47)
[2016-07-26] MEDS: SERTRALINE HCL 50 MG TABLET (FP) PO SCH (10:47)
[2016-07-26] MEDS: amLODIPine BESYLATE 10 MG TABLET (FP) PO SCH (10:48)
[2016-07-26] MEDS: HYDROCHLOROTHIAZIDE 25 MG TABLET (FP) PO SCH (10:48)
[2016-07-26] MEDS: ACLIDINIUM BROMIDE 400 MCG/INH AERO.POWD IH SCH ×2 (10:48→22:32)
[2016-07-26] MEDS: diazePAM 5 MG TABLET PO PRN ×2 (10:48→22:34)
[2016-07-26] MEDS: BUDESONIDE/FORMETEROL FUMARATE 80/4.5 mcg INHALER IH SCH ×2 (10:48→22:32)
[2016-07-26] MEDS: NICOTINE 21 MG/24 HOURS TOPICAL PATCH TD SCH (10:50)
--- NOTE | 2016-07-26 11:30 | PN ---
BHS COWS - Scale Resting Pulse: 2= [place] 101-120 Sweatin= Chills/Flushing Restless Observation: 1= Difficult to Sit Still Pupil Size: 0= Normal to Room Light Bone or Joint Aches: 2= Severe Diffuse Aches Runny Nose/ Eye Tearin= Nasal Congestion GI Upset > 30mins: 0= None Tremor Observation of Outstretched Hands: 2= Slight Tremor Visible Yawning Observation: 1= 1-2x During Session Anxiety or Irritability: 1=Feels Anxious/Irritable Goose Flesh Skin: 0=Smooth Skin COWS Score: 11 BHS Progress Note (SOAP) Subjective: agitation sweats irritable body aches Objective: 07/26/16 11:29 Vital Signs Temperature 99.5 F 07/26/16 09:57 Pulse Rate 110 H 07/26/16 09:57 Respiratory Rate 16 07/26/16 09:57 Blood Pressure 146/90 07/26/16 09:57 O2 Sat by Pulse Oximetry (%) Laboratory Tests 07/25/16 07/25/16 07/25/16 06:00 06:00 06:00 WBC 9.7 RBC 4.72 Hgb 13.9 Hct 42.6 MCV 90.3 MCHC 32.7 RDW 14.0 Plt Count 165 MPV 11.1 Sodium 139 Potassium 4.6 Chloride 103 Carbon Dioxide 28 Anion Gap 8 BUN 13 Creatinine 0.8 Creat Clearance w eGFR > 60 Random Glucose 85 D Calcium 9.1 Total Bilirubin 0.3 AST 11 L ALT 16 Alkaline Phosphatase 111 Total Protein 7.2 Albumin 4.0 Urine Color Urine Appearance Urine pH Ur Specific [place] Urine Protein Urine Glucose (UA) Urine Ketones Urine Blood Urine Nitrite Urine Bilirubin Urine Urobilinogen Ur Leukocyte Esterase RPR Titer Nonreactive 07/25/16 07:00 WBC RBC Hgb Hct MCV MCHC RDW Plt Count MPV Sodium Potassium Chloride Carbon Dioxide Anion Gap BUN Creatinine Creat Clearance w eGFR Random Glucose Calcium Total Bilirubin AST ALT Alkaline Phosphatase Total Protein Albumin Urine Color Straw Urine Appearance Clear Urine pH 7.0 Ur Specific [place] 1.009 Urine Protein Negative Urine Glucose (UA) Negative Urine Ketones Negative Urine Blood Negative Urine Nitrite Negative Urine Bilirubin Negative Urine Urobilinogen Negative Ur Leukocyte Esterase Negative RPR Titer awake/alert ambulating no acute distress Assessment: 07/26/16 11:29 withdrawal sx Plan: continue detox increase fluids
[2016-07-26] MEDS: THIAMINE HCL 100 MG TABLET (FP) PO SCH (22:33)
[2016-07-26] MEDS: QUEtiapine FUMARATE 100 MG TABLET (FP) PO SCH (22:33)
[2016-07-27] MEDS ORDERED: METHADONE HCL 5 MG TABLET (FOR DETOX USE ONLY) PO ONE (10:00)
[2016-07-27] MEDS: BUDESONIDE/FORMETEROL FUMARATE 80/4.5 mcg INHALER IH SCH ×2 (10:39→22:33)
[2016-07-27] MEDS: ACLIDINIUM BROMIDE 400 MCG/INH AERO.POWD IH SCH ×2 (10:40→22:33)
[2016-07-27] MEDS: SERTRALINE HCL 50 MG TABLET (FP) PO SCH (10:40)
[2016-07-27] MEDS: PRENATAL VITAMINS W/ FOLIC ACID TABLET (FP) PO SCH (10:40)
[2016-07-27] MEDS: HYDROCHLOROTHIAZIDE 25 MG TABLET (FP) PO SCH (10:40)
[2016-07-27] MEDS: diazePAM 5 MG TABLET PO PRN ×2 (10:42→17:22)
[2016-07-27] MEDS: amLODIPine BESYLATE 10 MG TABLET (FP) PO SCH (10:42)
[2016-07-27] MEDS: NICOTINE 21 MG/24 HOURS TOPICAL PATCH TD SCH (10:44)
--- NOTE | 2016-07-27 12:04 | PN ---
BHS Progress Note (SOAP) Subjective: interrupted sleep, sweats Objective: 07/27/16 12:03 Vital Signs Temperature 98.1 F 07/27/16 09:43 Pulse Rate 105 H 07/27/16 09:43 Respiratory Rate 16 07/27/16 09:43 Blood Pressure 127/96 07/27/16 09:43 O2 Sat by Pulse Oximetry (%) Laboratory Tests 07/25/16 07/25/16 07/25/16 06:00 06:00 06:00 WBC 9.7 RBC 4.72 Hgb 13.9 Hct 42.6 MCV 90.3 MCHC 32.7 RDW 14.0 Plt Count 165 MPV 11.1 Sodium 139 Potassium 4.6 Chloride 103 Carbon Dioxide 28 Anion Gap 8 BUN 13 Creatinine 0.8 Creat Clearance w eGFR > 60 Random Glucose 85 D Calcium 9.1 Total Bilirubin 0.3 AST 11 L ALT 16 Alkaline Phosphatase 111 Total Protein 7.2 Albumin 4.0 Urine Color Urine Appearance Urine pH Ur Specific [place] Urine Protein Urine Glucose (UA) Urine Ketones Urine Blood Urine Nitrite Urine Bilirubin Urine Urobilinogen Ur Leukocyte Esterase RPR Titer Nonreactive 07/25/16 07:00 WBC RBC Hgb Hct MCV MCHC RDW Plt Count MPV Sodium Potassium Chloride Carbon Dioxide Anion Gap BUN Creatinine Creat Clearance w eGFR Random Glucose Calcium Total Bilirubin AST ALT Alkaline Phosphatase Total Protein Albumin Urine Color Straw Urine Appearance Clear Urine pH 7.0 Ur Specific [place] 1.009 Urine Protein Negative Urine Glucose (UA) Negative Urine Ketones Negative Urine Blood Negative Urine Nitrite Negative Urine Bilirubin Negative Urine Urobilinogen Negative Ur Leukocyte Esterase Negative RPR Titer 08/24/16 13:24 pt aoxx3 in nad , ambulating Assessment: 07/27/16 12:04 withdrawal sx's lbp 08/24/16 13:24 Plan: cont. detox increase fluids motrin /tylenol prn
[2016-07-27] MEDS: QUEtiapine FUMARATE 100 MG TABLET (FP) PO SCH (22:34)
[2016-07-27] MEDS: THIAMINE HCL 100 MG TABLET (FP) PO SCH (22:34)
[2016-07-28] MEDS ORDERED: METHADONE HCL 10 MG TABLET (FOR DETOX USE ONLY) PO ONE (10:00)
[2016-07-28] MEDS: amLODIPine BESYLATE 10 MG TABLET (FP) PO SCH (10:48)
[2016-07-28] MEDS: PRENATAL VITAMINS W/ FOLIC ACID TABLET (FP) PO SCH (10:48)
[2016-07-28] MEDS: SERTRALINE HCL 50 MG TABLET (FP) PO SCH (10:48)
[2016-07-28] MEDS: HYDROCHLOROTHIAZIDE 25 MG TABLET (FP) PO SCH (10:48)
[2016-07-28] MEDS: ACLIDINIUM BROMIDE 400 MCG/INH AERO.POWD IH SCH ×2 (10:48→22:37)
[2016-07-28] MEDS: BUDESONIDE/FORMETEROL FUMARATE 80/4.5 mcg INHALER IH SCH ×2 (10:49→22:36)
[2016-07-28] MEDS: NICOTINE 21 MG/24 HOURS TOPICAL PATCH TD SCH (10:49)
--- NOTE | 2016-07-28 12:07 | PN ---
BHS Progress Note (SOAP) Subjective: sweats anxious Objective: 07/28/16 12:07 Vital Signs Temperature 97.9 F 07/28/16 10:53 Pulse Rate 103 H 07/28/16 10:53 Respiratory Rate 18 07/28/16 10:53 Blood Pressure 119/73 07/28/16 10:53 O2 Sat by Pulse Oximetry (%) awake/alert ambulating no acute distress Assessment: 07/28/16 12:07 withdrawal sx Plan: continue detox d/c in am
[2016-07-28] MEDS: diphenhydrAMINE HCL 50 MG CAPSULE PO PRN (22:36)
[2016-07-28] MEDS: QUEtiapine FUMARATE 100 MG TABLET (FP) PO SCH (22:36)
[2016-07-28] MEDS: THIAMINE HCL 100 MG TABLET (FP) PO SCH (22:36)
[2016-07-29] MEDS ORDERED: METHADONE HCL 5 MG TABLET (FOR DETOX USE ONLY) PO ONE (06:00)
[2016-07-29 06:59] VITALS: BP 115/75; PULSE 88; TEMP 97.9
--- NOTE | 2016-08-24 13:28 | DS ---
[facility] Detox Discharge Summary Admission Date: 07/24/16 Discharge Date: 07/29/16 - History Present History: Cocaine Dependence, Opioid Dependence - Physical Exam Results Vital Signs: Vital Signs Temperature 97.9 F 07/29/16 06:00 Pulse Rate 88 07/29/16 06:00 Respiratory Rate 18 07/29/16 06:00 Blood Pressure 115/75 07/29/16 06:00 O2 Sat by Pulse Oximetry (%) - Treatment Hospital Course: Detox Protocol Followed, Detoxed Safely, Responded well, Discharged Condition Good - Medication Discharge Medications: Ambulatory Orders Quetiapine Fumarate [Seroquel -] 100 mg PO HS #30 tab 12/12/14 Albuterol Sulfate Inhaler - [Ventolin HFA Inhaler -] 2 inh PO Q4H PRN #1 inhaler 12/16/14 Budesonide/Formeterol Fumarate [SYMBICORT 80/4.5mcg -] 1 puff IH BID #1 inhaler 12/16/14 Tiotropium [place] [Spiriva] 1 inh PO DAILY #1 inh 12/16/14 Hydrochlorothiazide [Hctz -] 25 mg PO DAILY 03/12/16 Sertraline HCl [Zoloft -] 50 mg PO DAILY #30 03/13/16 Quetiapine Fumarate [Seroquel] 100 mg PO HS #30 tablet 06/27/16 Sertraline HCl [Zoloft] 100 mg PO DAILY #30 tablet 06/27/16 Quetiapine Fumarate [Seroquel] 100 mg PO HS #30 tablet 07/25/16 Sertraline HCl [Zoloft -] 50 mg PO DAILY #30 tablet 07/25/16 Quetiapine Fumarate [Seroquel] 100 mg PO HS #30 tablet 07/28/16 Sertraline HCl [Zoloft -] 50 mg PO DAILY #30 tablet 07/28/16 Amlodipine Besylate [Norvasc -] 10 mg PO DAILY #30 tablet 07/29/16 Hydrochlorothiazide [Hctz -] 25 mg PO DAILY #30 cap 07/29/16 - Diagnosis (1) Cannabis dependence, uncomplicated Status: Chronic (2) Cocaine dependence, uncomplicated Status: Chronic (3) Nicotine dependence Status: Chronic Qualifiers: Nicotine product type: cigarettes Substance use status: uncomplicated Qualified Code(s): F17.210 - Nicotine dependence, cigarettes, uncomplicated (4) Opioid dependence with withdrawal Status: Chronic (5) COPD (chronic obstructive pulmonary disease) Status: Chronic Qualifiers: COPD type: unspecified COPD Qualified Code(s): J44.9 - Chronic obstructive pulmonary disease, unspecified (6) Depression Status: Chronic Qualifiers: Depression Type: unspecified Qualified Code(s): F32.9 - Major depressive disorder, single episode, unspecified (7) HTN (hypertension) Status: Chronic Qualifiers: Hypertension type: essential hypertension Qualified Code(s): I10 - Essential (primary) hypertension - AMA Did Patient Leave Against Medical Advice: No
== END 2016-07-29 09:06 | disposition home or self-care (01) | DRG 773 ==
LOC: YASAS 11:56 → Y6N 18:18
PROVIDERS: ADMIT Internal Medicine Addiction Medicine; ATTEND Internal Medicine Addiction Medicine
PROC: HZ2ZZZZ Detoxification Services for Substance Abuse Treatment (ICD-10-PCS; principal; 2016-07-29)
DX: F11.23 Opioid dependence with withdrawal (principal); F14.20 Cocaine dependence, uncomplicated; F12.20 Cannabis dependence, uncomplicated; F17.213 Nicotine dependence, cigarettes, with withdrawal; F19.24 Other psychoactive substance dependence with psychoactive substance-induced mood disorder; F33.1 Major depressive disorder, recurrent, moderate; G47.00 Insomnia, unspecified; I10 Essential (primary) hypertension; J44.9 Chronic obstructive pulmonary disease, unspecified; D64.9 Anemia, unspecified
CPT/HCPCS: 36415; 80053; 81003; 85027; 86593; 93005; 93010

== ENCOUNTER 2016-10-04 08:33 | Inpatient (IN) | payer OTHER ==
[2016-10-04 09:31] VITALS: BMI 27.8
--- NOTE | 2016-10-04 10:23 | HP ---
COWS - Scale Resting Pulse: 0= [place] 80 or Below Sweatin=Flushed/Facial Moisture Restless Observation: 3= Extraneous Movement Pupil Size: 2= Moderately Dilated Bone or Joint Aches: 2= Severe Diffuse Aches Runny Nose/ Eye Tearin= Runny Nose/Eyes GI Upset > 30mins: 3= Vomiting/Diarrhea Tremor Observation: 2= Slight Tremor Visible Yawning Observation: 2= >3x During Session Anxiety or Irritability: 2=Irritable/Anxious Goose Flesh Skin: 0=Smooth Skin COWS Score: 20 Admission ROS S - HPI Chief Complaint: i am here to stop using heroin,cocaine and marijuana Allergies/Adverse Reactions: Allergies Allergy/AdvReac Type Severity Reaction Status Date / Time egg Allergy Severe Rash Verified 10/04/16 10:20 No Known Drug Allergies Allergy Verified 10/04/16 10:20 History of Present Illness: this 51 years old female with heroin,cocaine and marijuana dependence,seeking help to stop using,last detox [facility] 07/24/16 to 07/29/16 nicotine dependence anxiety and depression several detox treatment in the past ,keep relapsing no significant period of sobriety Exam Limitations: No Limitations - Ebola screening Have you traveled outside of the country in the last 21 days: No Have you had contact with anyone from an Ebola affected area: No Have you been sick,other than usual withdrawal symptoms: No Do you have a fever: No - Review of Systems Constitutional: Chills, Diaphoresis, Loss of Appetite, Malaise, Night Sweats, Changes in sleep EENT: reports: Nose Congestion Respiratory: reports: No Symptoms reported (copd) Cardiac: reports: Palpitations GI: reports: Diarrhea, Nausea, Vomiting, Abdominal cramping : reports: No Symptoms Reported Musculoskeletal: reports: Back Pain, Joint Pain, Muscle Pain, Joint Stiffness Integumentary: reports: Dryness Neuro: reports: Headache, Tremors Endocrine: reports: No Symptoms Reported Hematology: reports: No Symptoms Reported Psychiatric: reports: Anxious, Depressed Patient History - Patient Medical History Hx Anemia: Yes (NO CURRENT TX) Hx Asthma: No Hx Chronic Obstructive Pulmonary Disease (COPD): Yes (on albuterol inhaler, spiriva and symbicort) Hx Cancer: No Hx Cardiac Disorders: No Hx Congestive Heart Failure: No Hx Hypertension: Yes (non compliants) Hx Hypercholesterolemia: No Hx Pacemaker: No HX Cerebrovascular Accident: No Hx Seizures: No Hx Dementia: No Hx Diabetes: No Hx Gastrointestinal Disorders: No Hx Liver Disease: No Hx Genitourinary Disorders: No Hx Sexually Transmitted Disorders: Yes (GENITAL HERPES HX ) Hx Renal Disease (ESRD): No Hx Thyroid Disease: No Hx Human Immunodeficiency Virus (HIV): No ( NEGATIVE HX last 2015) Hx Hepatitis C: No (NEGATIVE HX) Hx Depression: Yes (ON MEDS) Hx Suicide Attempt: No (DENIES) Hx Bipolar Disorder: Yes (NOT TAKING DUE TO USING HEROIN/COCAINE) Hx Schizophrenia: No Other Medical History: no suicidal,no homicidal - Patient Surgical History Past Surgical History: No Hx Neurologic Surgery: No Hx Cataract Extraction: No Hx Cardiac Surgery: No Hx Lung Surgery: No Hx Breast Surgery: No Hx Breast Biopsy: No Hx Abdominal Surgery: No Hx Appendectomy: No Hx Cholecystectomy: No Hx Genitourinary Surgery: No Hx Section: No Hx Orthopedic Surgery: No Hx Hysterectomy: No Anesthesia Reaction: No - PPD History Previous Implant?: Yes Documented Results: Negative w/proof Date: 03/14/16 Results: 0 mm PPD to be Administered?: No - Reproductive History Patient is a Female of Child Bearing Age (11 -55 yrs old): Yes Last Menstrual Period: 03/10/16 Patient : No - Smoking Cessation Smoking history: Current every day smoker Have you smoked in the past 12 months: Yes Aproximately how many cigarettes per day: 60 Cigars Per Day: 0 Hx Chewing Tobacco Use: No Initiated information on smoking cessation: Yes 'Breaking Loose' booklet given: 10/04/16 - Substance & Tx. History Hx Alcohol Use: No Hx Substance Use: Yes Substance Use Type: Cocaine, Heroin, Marijuana Hx Substance Use Treatment: Yes ([facility] 07/24/16 to 07/29/16) - Substances Abused Heroin Route: Inhalation Frequency: Daily Amount used: 13-14 bags Age of first use: 50 Date of Last Use: 10/04/16 Cocaine Route: Smoking Frequency: Daily Amount used: 2 cigars Age of first use: 22 Date of Last Use: 10/03/16 Marijuana/Hashish Route: Smoking Frequency: Daily Amount used: 1 joint Age of first use: 16 Date of Last Use: 10/03/16 Family Disease History - Family Disease History Family Disease History: [place]: Grandparent (OVARIAN CANCER-), Father ( THROAT-), Other: Mother (ASTHMA.) Admission Physical Exam [facility] - Vital Signs Vital Signs: Vital Signs - 24 hr 10/04/16 09:21 Temperature 97.5 F L Pulse Rate 75 Respiratory 20 Rate Blood Pressure 140/91 - Physical General Appearance: Yes: Moderate Distress, Tremorous, Irritable, Sweating, Anxious HEENTM: Yes: Hearing grossly Normal, Normal ENT Inspection, Pharynx Normal Respiratory: Yes: Lungs Clear, Normal Breath Sounds, No Respiratory Distress Neck: Yes: Within Normal Limits, Supple, Trachea in good position Breast: Yes: Breast Exam Deferred Cardiology: Yes: Within Normal Limits, Regular Rhythm, Regular Rate, S1, S2 Abdominal: Yes: Within Normal Limits, Normal Bowel Sounds, Non Tender, Soft Genitourinary: Yes: Within Normal Limits Back: Yes: Muscle Spasm Musculoskeletal: Yes: full range of Motion, Back pain, Joint Stiffness, Muscle Pain Extremities: Yes: Normal Range of Motion, Tremors Neurological: Yes: construction framer II-XII NML intact, Fully Oriented, Alert, Motor Strength 5/5 Integumentary: Yes: Dry Lymphatic: Yes: Within Normal Limits - Diagnostic (1) Insomnia Current Visit: Yes Status: Acute (2) COPD (chronic obstructive pulmonary disease) Current Visit: Yes Status: Chronic Qualifiers: COPD type: unspecified COPD Qualified Code(s): J44.9 - Chronic obstructive pulmonary disease, unspecified (3) Cannabis dependence, uncomplicated Current Visit: Yes Status: Acute (4) Cocaine dependence, uncomplicated Current Visit: Yes Status: Acute (5) Depression Current Visit: No Status: Chronic Qualifiers: Depression Type: unspecified Qualified Code(s): F32.9 - Major depressive disorder, single episode, unspecified (6) HTN (hypertension) Current Visit: Yes Status: Chronic Qualifiers: Hypertension type: essential hypertension Qualified Code(s): I10 - Essential (primary) hypertension (7) Nicotine dependence Current Visit: Yes Status: Acute Qualifiers: Nicotine product type: cigarettes Substance use status: uncomplicated Qualified Code(s): F17.210 - Nicotine dependence, cigarettes, uncomplicated (8) Opioid dependence with withdrawal Current Visit: Yes Status: Acute Cleared for Admission [facility] - Detox or Rehab [facility] Level of Care: Medically Managed Detox Regimen/Protocol: Methadone [facility] Breath Alcohol Content Breath Alcohol Content: 0 Urine Pregancy Test - Result Urine Test Results: Negative- NO Line Present Urine Drug Screen - Results Drug Screen Negative: No Urine Drug Screen Results: THC-Marijuana, MANJINDER-Cocaine, OPI-Opiates, BZO- Benzodiazepines, MTD-Methadone, TCA-Tricyclic Antidepress, OXY-Oxycodone
[2016-10-04] MEDS ORDERED: LOPERAMIDE HCL 2 MG CAPSULE PO PRN (10:38)
[2016-10-04] MEDS ORDERED: MAGNESIUM HYDROX 2400MG/30ML ORAL SUSPENSION 30 ML CUP PO PRN (10:38)
[2016-10-04] MEDS ORDERED: IBUPROFEN 400 MG TABLET (FP) PO PRN (10:38)
[2016-10-04] MEDS ORDERED: MAG HYDROX/AL HYDROX/SIMETH 30 ML UNIT-DOSE CUP PO PRN (10:38)
[2016-10-04] MEDS ORDERED: NICOTINE POLACRILEX 2 MG GUM BUC PRN (10:38)
[2016-10-04] MEDS ORDERED: P-EPHED 60MG/TRIPROLIDI 2.5MG TABLET PO PRN (10:38)
[2016-10-04] MEDS ORDERED: guaiFENesin/D-METHORPHAN HB 10 ML UNIT-DOSE CUPS PO PRN (10:38)
[2016-10-04] MEDS ORDERED: MAGNESIUM CITRATE 300 ML BOTTLE PO PRN (10:38)
[2016-10-04] MEDS ORDERED: MENTHOL/PHENOL 1 EACH UD MM PRN (10:38)
[2016-10-04] MEDS ORDERED: ACETAMINOPHEN 325 MG TABLET (FP) PO PRN (10:38)
[2016-10-04] MEDS ORDERED: ALBUTEROL SO4 6.7 GM HFA INHALER IH PRN (10:42)
[2016-10-04] MEDS ORDERED: METHADONE HCL 10 MG TABLET (FOR DETOX USE ONLY) PO ONE ×2 (10:57→23:00)
[2016-10-04] MEDS: diazePAM 5 MG TABLET PO PRN ×2 (12:05→20:15)
[2016-10-04] MEDS: NICOTINE 21 MG/24 HOURS TOPICAL PATCH TD SCH (12:05)
--- NOTE | 2016-10-04 12:27 | CONSULT ---
[facility] Psychiatric Consult - Data Date of interview: 10/04/16 Admission source: [facility] Identifying data: Readmission to [facility] for this 51 y/o female seeking detox treatment for heroin,cannabis and cocaine (crack) dependence.Patient is single,a mother of one,domiciled,unemployed and supported on Public Assistance. Substance Abuse History: Extensive history of substance abuse.Patient reports daily use of heroin (15 bags - onset at age 50 - last use on 10/04/16),spending in excess of 400 dollars/day on crack (started at age 22/last use on 10/03/16) .Ms Fisher reportedly smokes 3 pack of cigarettes/day and 5 joints of marijuana on a weekly basis. Medical History: Remarkable for a history of anemia,genital herpes,COPD and hypertension. Psychiatric History: Patient admits to a history of one psychiatric admission ( [facility] in [place] 10 years ago).She endorses the diagnosis of Bipolar Disorder.Ms Fisher reports that she is non compliant with medications /referrals for aftercare.No OPD care since her discharge from this facility in July 2016.She is now requesting that seroquel and zoloft be added to her current regimen of medications.No reported history of suicide attempts. Physical/Sexual Abuse/Trauma History: Patient declines to discuss this issue in this interview. Additional Comment: Urine Drug Screen Results : positive for marijuana,cocaine, opiates,benzodiazepines,methadone,tricyclic antidepressant and oxycodone. Mental Status Exam - Mental Status Exam Alert and Oriented to: Time, Place, Person Cognitive Function: Good Patient Appearance: Well Groomed Mood: Withdrawn, Anxious Affect: Appropriate, Mood Congruent Patient Behavior: Fatigued, Cooperative Speech Pattern: Clear Voice Loudness: Normal Thought Process: Goal Oriented Thought Disorder: Not Present Hallucinations: Denies Suicidal Ideation: Denies Homicidal Ideation: Denies Insight/Judgement: Poor Sleep: Fair Appetite: Good Muscle strength/Tone: Normal Gait/Station: Normal Psychiatric Findings - Problem List ([place] 1, 2,3) (1) Opioid dependence with withdrawal Current Visit: Yes Status: Acute (2) Cocaine dependence, uncomplicated Current Visit: Yes Status: Acute (3) Cannabis dependence, uncomplicated Current Visit: Yes Status: Acute (4) Nicotine dependence Current Visit: Yes Status: Acute Qualifiers: Nicotine product type: cigarettes Substance use status: uncomplicated Qualified Code(s): F17.210 - Nicotine dependence, cigarettes, uncomplicated (5) Substance induced mood disorder Current Visit: Yes Status: Acute (6) Mood disorder Current Visit: Yes Status: Chronic (7) COPD (chronic obstructive pulmonary disease) Current Visit: Yes Status: Chronic Qualifiers: COPD type: unspecified COPD Qualified Code(s): J44.9 - Chronic obstructive pulmonary disease, unspecified (8) HTN (hypertension) Current Visit: Yes Status: Chronic Qualifiers: Hypertension type: essential hypertension Qualified Code(s): I10 - Essential (primary) hypertension (9) History of anemia Current Visit: Yes Status: Suspected (10) Insomnia Current Visit: Yes Status: Acute - Initial Treatment Plan Initial Treatment Plan: Psychoeducation is provided in this session.Previous records are reviewed.Detoxification is in progress.Medications (seroquel 100 mg po hs + zoloft 50 mg po daily) are discussed.Patient is made aware of the potential for oversedation/falls,orthostasis,abnormal involuntary movements, metabolic syndrome from use of seroquel and suicidal ideation/sexual dysfunction from the SSRI agent (zoloft).No prior history of adverse effects.Patient consents (verbally) to resume these two medications.Monitor progress.
--- NOTE | 2016-10-04 13:01 | EKG ---
Test Reason : Blood Pressure : / mmHG Vent. Rate : 069 BPM Atrial Rate : 069 BPM P-R Int : 162 ms QRS Dur : 082 ms QT Int : 408 ms P-R-T Axes : 020 075 000 degrees QTc Int : 437 ms NORMAL SINUS RHYTHM NONSPECIFIC T WAVE ABNORMALITY ABNORMAL ECG WHEN COMPARED WITH ECG OF 24-JUL-2016 18:45, NONSPECIFIC T WAVE ABNORMALITY NOW EVIDENT IN ANTERIOR LEADS Confirmed by PAMELA STEPHENS, HORTENCIA ([id number]) on 10/04/2016 1:01:38 PM Referred By: Confirmed By:HORTENCIA SANTIAGO MD
[2016-10-04 14:50] LABS: URINE APPEARANCE CLEAR; URINE BILIRUBIN NEGATIVE (NEGATIVE); URINE BLOOD NEGATIVE (NEGATIVE); URINE COLOR AMBER; URINE GLUCOSE (UA) NEGATIVE (NEGATIVE); URINE KETONE TRACE (NEGATIVE); URINE LEUK ESTERASE NEGATIVE (NEGATIVE); URINE NITRITE NEGATIVE (NEGATIVE); URINE PROTEIN NEGATIVE (NEGATIVE); URINE UROBILINOGEN NEGATIVE E.U./dl (0.2-1.0)
[2016-10-04 15:38] LABS: HIV 1 & 2 AB NEGATIVE; HIV 1 AGp24 NEGATIVE
[2016-10-04] MEDS: cloNIDine HCL 0.1 MG TABLET PO SCH (22:31)
[2016-10-04] MEDS: QUEtiapine FUMARATE 100 MG TABLET (FP) PO SCH (22:31)
[2016-10-04] MEDS: BUDESONIDE/FORMETEROL FUMARATE 80/4.5 mcg INHALER IH SCH (22:31)
[2016-10-04] MEDS: THIAMINE HCL 100 MG TABLET (FP) PO SCH (22:31)
[2016-10-04] MEDS: diphenhydrAMINE HCL 50 MG CAPSULE PO PRN (22:32)
[2016-10-05 09:55] LABS: RDW 14.6 % (11.6-15.6); WHITE BLOOD COUNT 7.6 K/mm3 (4.0-10.0)
[2016-10-05 09:57] LABS: MCH 30.4 pg (25.7-33.7); MCHC 34.1 g/dl (32.0-36.0); MEAN CELL VOLUME 89.3 fl (80-96); MEAN PLT VOLUME 10.8 fl (7.5-11.1); PLATELET COUNT 161 K/MM3 (134-434)
[2016-10-05] MEDS ORDERED: TIOTROPIUM BROMIDE 18 MCG/INH (DEVICE W/ 5 CAPSULES) IH SCH (10:00)
[2016-10-05] MEDS ORDERED: METHADONE HCL 10 MG TABLET (FOR DETOX USE ONLY) PO ONE (10:00)
[2016-10-05] MEDS: ACLIDINIUM BROMIDE 400 MCG/INH AERO.POWD IH SCH ×2 (10:08→22:44)
[2016-10-05] MEDS: BUDESONIDE/FORMETEROL FUMARATE 80/4.5 mcg INHALER IH SCH ×2 (10:08→22:44)
[2016-10-05] MEDS: HYDROCHLOROTHIAZIDE 12.5 MG CAPSULE (FP) PO SCH (10:09)
[2016-10-05] MEDS: amLODIPine BESYLATE 10 MG TABLET (FP) PO SCH (10:09)
[2016-10-05] MEDS: cloNIDine HCL 0.1 MG TABLET PO SCH ×2 (10:09→22:44)
[2016-10-05] MEDS: SERTRALINE HCL 50 MG TABLET (FP) PO SCH (10:09)
[2016-10-05] MEDS: PRENATAL VITAMINS W/ FOLIC ACID TABLET (FP) PO SCH (10:09)
[2016-10-05] MEDS: NICOTINE 21 MG/24 HOURS TOPICAL PATCH TD SCH (10:09)
[2016-10-05 10:23] LABS: ALBUMIN 3.8 g/dl (3.4-5.0); ALK PHOS 103 U/L (45-117); ANION GAP 4 (8-16); BILIRUBIN,TOTAL 0.2 mg/dL (0.2-1.0); CALCIUM 9.2 mg/dL (8.5-10.1); CO2 29 mmol/L (21-32); CREATININE 0.8 mg/dL (0.55-1.02); GLUCOSE,RANDOM 72 mg/dL (74-106); SGOT/AST 11 U/L (15-37); SGPT/ALT 13 U/L (12-78); TOT PROT 7.1 g/dl (6.4-8.2)
--- NOTE | 2016-10-05 11:05 | PN ---
BHS COWS - Scale Resting Pulse: 1= [place] 81-100 Sweatin=Flushed/Facial Moisture Restless Observation: 0= Sits Still Pupil Size: 0= Normal to Room Light Bone or Joint Aches: 2= Severe Diffuse Aches Runny Nose/ Eye Tearin= Runny Nose/Eyes GI Upset > 30mins: 1= Stomach Cramp Tremor Observation of Outstretched Hands: 2= Slight Tremor Visible Yawning Observation: 1= 1-2x During Session Anxiety or Irritability: 2=Irritable/Anxious Goose Flesh Skin: 3=Piloerection COWS Score: 16 BHS Progress Note (SOAP) Subjective: Tremors, Body Aches, Sweating, Hot / Cold Sensations, Stomach Cramping. Objective: PT. A & O X 3, OBSERVED AMBULATING ON UNIT. NO ACUTE DISTRESS. PT. DENIES CHEST PAIN. 10/05/16 11:02 Vital Signs Temperature 97.4 F L 10/05/16 09:49 Pulse Rate 94 H 10/05/16 09:49 Respiratory Rate 16 10/05/16 09:49 Blood Pressure 141/101 10/05/16 09:49 O2 Sat by Pulse Oximetry (%) Laboratory Tests 10/04/16 10/04/16 10/05/16 11:05 12:00 06:00 WBC 7.6 RBC 4.52 Hgb 13.7 Hct 40.3 MCV 89.3 MCH 30.4 MCHC 34.1 RDW 14.6 Plt Count 161 MPV 10.8 Sodium Potassium Chloride Carbon Dioxide Anion Gap BUN Creatinine Creat Clearance w eGFR Random Glucose Calcium Total Bilirubin AST ALT Alkaline Phosphatase Total Protein Albumin Urine Color Hailey Urine Appearance Clear Urine pH 6.0 Ur Specific [place] 1.025 Urine Protein Negative Urine Glucose (UA) Negative Urine Ketones Trace H Urine Blood Negative Urine Nitrite Negative Urine Bilirubin Negative Urine Urobilinogen Negative Ur Leukocyte Esterase Negative HIV 1&2 Antibody Screen Negative HIV P24 Antigen Negative 10/05/16 06:00 WBC RBC Hgb Hct MCV MCH MCHC RDW Plt Count MPV Sodium 139 Potassium 4.4 Chloride 106 Carbon Dioxide 29 Anion Gap 4 L BUN 8 D Creatinine 0.8 Creat Clearance w eGFR > 60 Random Glucose 72 L Calcium 9.2 Total Bilirubin 0.2 D AST 11 L ALT 13 Alkaline Phosphatase 103 Total Protein 7.1 Albumin 3.8 Urine Color Urine Appearance Urine pH Ur Specific [place] Urine Protein Urine Glucose (UA) Urine Ketones Urine Blood Urine Nitrite Urine Bilirubin Urine Urobilinogen Ur Leukocyte Esterase HIV 1&2 Antibody Screen HIV P24 Antigen LABS NOTED. Assessment: 10/05/16 11:03 WITHDRAWAL SYMPTOMS. Plan: CONTINUE DETOX. CONTINUE TO MONITOR BP.
[2016-10-05] MEDS: diazePAM 5 MG TABLET PO PRN ×3 (11:53→22:45)
[2016-10-05] MEDS: hydrOXYzine PAMOATE 25 MG CAPSULE (FP) PO PRN (12:55)
[2016-10-05] MEDS: THIAMINE HCL 100 MG TABLET (FP) PO SCH (22:44)
[2016-10-05] MEDS: QUEtiapine FUMARATE 100 MG TABLET (FP) PO SCH (22:44)
[2016-10-06] MEDS: diazePAM 5 MG TABLET PO PRN ×3 (06:06→22:41)
[2016-10-06] MEDS ORDERED: METHADONE HCL 5 MG TABLET (FOR DETOX USE ONLY) PO ONE (10:00)
[2016-10-06] MEDS: SERTRALINE HCL 50 MG TABLET (FP) PO SCH (10:25)
[2016-10-06] MEDS: amLODIPine BESYLATE 10 MG TABLET (FP) PO SCH (10:25)
[2016-10-06] MEDS: HYDROCHLOROTHIAZIDE 12.5 MG CAPSULE (FP) PO SCH (10:25)
[2016-10-06] MEDS: cloNIDine HCL 0.1 MG TABLET PO SCH ×2 (10:25→22:29)
[2016-10-06] MEDS: BUDESONIDE/FORMETEROL FUMARATE 80/4.5 mcg INHALER IH SCH ×2 (10:25→22:31)
[2016-10-06] MEDS: PRENATAL VITAMINS W/ FOLIC ACID TABLET (FP) PO SCH (10:25)
[2016-10-06] MEDS: ACLIDINIUM BROMIDE 400 MCG/INH AERO.POWD IH SCH ×2 (10:26→22:31)
[2016-10-06] MEDS: NICOTINE 21 MG/24 HOURS TOPICAL PATCH TD SCH (10:28)
--- NOTE | 2016-10-06 10:51 | PN ---
BHS COWS - Scale Resting Pulse: 1= [place] 81-100 Sweatin= Chills/Flushing Restless Observation: 3= Extraneous Movement Pupil Size: 2= Moderately Dilated Bone or Joint Aches: 4=Acute Joint/Muscle Pain Runny Nose/ Eye Tearin= Nasal Congestion GI Upset > 30mins: 1= Stomach Cramp Tremor Observation of Outstretched Hands: 1= Tremor [place], Not Seen Yawning Observation: 1= 1-2x During Session Anxiety or Irritability: 2=Irritable/Anxious Goose Flesh Skin: 0=Smooth Skin COWS Score: 17 BHS Progress Note (SOAP) Subjective: ANXIETY,SWEATS,BODY ACHES. Objective: 10/06/16 10:50 Vital Signs Temperature 98.1 F 10/06/16 06:25 Pulse Rate 68 10/06/16 06:25 Respiratory Rate 16 10/06/16 06:25 Blood Pressure 124/78 10/06/16 06:25 O2 Sat by Pulse Oximetry (%) Laboratory Last Values WBC 7.6 K/mm3 (4.0-10.0) 10/05/16 06:00 RBC 4.52 M/mm3 (3.60-5.2) 10/05/16 06:00 Hgb 13.7 GM/dL (10.7-15.3) 10/05/16 06:00 Hct 40.3 % (32.4-45.2) 10/05/16 06:00 MCV 89.3 fl (80-96) 10/05/16 06:00 MCH 30.4 pg (25.7-33.7) 10/05/16 06:00 MCHC 34.1 g/dl (32.0-36.0) 10/05/16 06:00 RDW 14.6 % (11.6-15.6) 10/05/16 06:00 Plt Count 161 K/MM3 (134-434) 10/05/16 06:00 MPV 10.8 fl (7.5-11.1) 10/05/16 06:00 Sodium 139 mmol/L (136-145) 10/05/16 06:00 Potassium 4.4 mmol/L (3.5-5.1) 10/05/16 06:00 Chloride 106 mmol/L (98-107) 10/05/16 06:00 Carbon Dioxide 29 mmol/L (21-32) 10/05/16 06:00 Anion Gap 4 (8-16) L 10/05/16 06:00 BUN 8 mg/dL (7-18) D 10/05/16 06:00 Creatinine 0.8 mg/dL (0.55-1.02) 10/05/16 06:00 Creat Clearance w eGFR > 60 (>60) 10/05/16 06:00 Random Glucose 72 mg/dL (74-106) L 10/05/16 06:00 Calcium 9.2 mg/dL (8.5-10.1) 10/05/16 06:00 Total Bilirubin 0.2 mg/dL (0.2-1.0) D 10/05/16 06:00 AST 11 U/L (15-37) L 10/05/16 06:00 ALT 13 U/L (12-78) 10/05/16 06:00 Alkaline Phosphatase 103 U/L (45-117) 10/05/16 06:00 Total Protein 7.1 g/dl (6.4-8.2) 10/05/16 06:00 Albumin 3.8 g/dl (3.4-5.0) 10/05/16 06:00 Urine Color Hailey 10/04/16 12:00 Urine Appearance Clear 10/04/16 12:00 Urine pH 6.0 (5.0-8.0) 10/04/16 12:00 Ur Specific [place] 1.025 (1.005-1.025) 10/04/16 12:00 Urine Protein Negative (NEGATIVE) 10/04/16 12:00 Urine Glucose (UA) Negative (NEGATIVE) 10/04/16 12:00 Urine Ketones Trace (NEGATIVE) H 10/04/16 12:00 Urine Blood Negative (NEGATIVE) 10/04/16 12:00 Urine Nitrite Negative (NEGATIVE) 10/04/16 12:00 Urine Bilirubin Negative (NEGATIVE) 10/04/16 12:00 Urine Urobilinogen Negative mg/dL (0.2-1.0) 10/04/16 12:00 Ur Leukocyte Esterase Negative (NEGATIVE) 10/04/16 12:00 RPR Titer Nonreactive (NONREACTIVE) 10/05/16 06:00 HIV 1&2 Antibody Screen Negative 10/04/16 11:05 HIV P24 Antigen Negative 10/04/16 11:05 Assessment: 10/06/16 10:50 WITHDRAWAL SX Plan: CONTINUE DETOX FLEXERIL 10 MG PO Q8H PRN MOTRIN DIRECTED PRN
[2016-10-06] MEDS: THIAMINE HCL 100 MG TABLET (FP) PO SCH (22:29)
[2016-10-06] MEDS: QUEtiapine FUMARATE 100 MG TABLET (FP) PO SCH (22:29)
[2016-10-07] MEDS: diazePAM 5 MG TABLET PO PRN (09:05)
[2016-10-07] MEDS ORDERED: METHADONE HCL 5 MG TABLET (FOR DETOX USE ONLY) PO ONE (10:00)
[2016-10-07] MEDS: amLODIPine BESYLATE 10 MG TABLET (FP) PO SCH (10:27)
[2016-10-07] MEDS: NICOTINE 21 MG/24 HOURS TOPICAL PATCH TD SCH (10:27)
[2016-10-07] MEDS: BUDESONIDE/FORMETEROL FUMARATE 80/4.5 mcg INHALER IH SCH ×2 (10:27→22:30)
[2016-10-07] MEDS: ACLIDINIUM BROMIDE 400 MCG/INH AERO.POWD IH SCH ×2 (10:27→22:30)
[2016-10-07] MEDS: cloNIDine HCL 0.1 MG TABLET PO SCH ×2 (10:27→22:18)
[2016-10-07] MEDS: PRENATAL VITAMINS W/ FOLIC ACID TABLET (FP) PO SCH (10:28)
[2016-10-07] MEDS: HYDROCHLOROTHIAZIDE 25 MG TABLET (FP) PO SCH (11:03)
[2016-10-07] MEDS: SERTRALINE HCL 50 MG TABLET (FP) PO SCH (11:04)
[2016-10-07] MEDS: HYDROCHLOROTHIAZIDE 12.5 MG CAPSULE (FP) PO SCH (11:05)
--- NOTE | 2016-10-07 11:10 | PN ---
S Progress Note (SOAP) Subjective: mild aches and anxiety Objective: 10/07/16 11:09 Vital Signs 10/07/16 10/07/16 10/07/16 03:29 06:00 09:05 Temperature 97.7 F 98.7 F Pulse Rate 69 99 H Respiratory 18 18 18 Rate Blood Pressure 110/74 134/93 Laboratory Last Values WBC 7.6 K/mm3 (4.0-10.0) 10/05/16 06:00 RBC 4.52 M/mm3 (3.60-5.2) 10/05/16 06:00 Hgb 13.7 GM/dL (10.7-15.3) 10/05/16 06:00 Hct 40.3 % (32.4-45.2) 10/05/16 06:00 MCV 89.3 fl (80-96) 10/05/16 06:00 MCH 30.4 pg (25.7-33.7) 10/05/16 06:00 MCHC 34.1 g/dl (32.0-36.0) 10/05/16 06:00 RDW 14.6 % (11.6-15.6) 10/05/16 06:00 Plt Count 161 K/MM3 (134-434) 10/05/16 06:00 MPV 10.8 fl (7.5-11.1) 10/05/16 06:00 Sodium 139 mmol/L (136-145) 10/05/16 06:00 Potassium 4.4 mmol/L (3.5-5.1) 10/05/16 06:00 Chloride 106 mmol/L (98-107) 10/05/16 06:00 Carbon Dioxide 29 mmol/L (21-32) 10/05/16 06:00 Anion Gap 4 (8-16) L 10/05/16 06:00 BUN 8 mg/dL (7-18) D 10/05/16 06:00 Creatinine 0.8 mg/dL (0.55-1.02) 10/05/16 06:00 Creat Clearance w eGFR > 60 (>60) 10/05/16 06:00 Random Glucose 72 mg/dL (74-106) L 10/05/16 06:00 Calcium 9.2 mg/dL (8.5-10.1) 10/05/16 06:00 Total Bilirubin 0.2 mg/dL (0.2-1.0) D 10/05/16 06:00 AST 11 U/L (15-37) L 10/05/16 06:00 ALT 13 U/L (12-78) 10/05/16 06:00 Alkaline Phosphatase 103 U/L (45-117) 10/05/16 06:00 Total Protein 7.1 g/dl (6.4-8.2) 10/05/16 06:00 Albumin 3.8 g/dl (3.4-5.0) 10/05/16 06:00 Urine Color Hailey 10/04/16 12:00 Urine Appearance Clear 10/04/16 12:00 Urine pH 6.0 (5.0-8.0) 10/04/16 12:00 Ur Specific [place] 1.025 (1.005-1.025) 10/04/16 12:00 Urine Protein Negative (NEGATIVE) 10/04/16 12:00 Urine Glucose (UA) Negative (NEGATIVE) 10/04/16 12:00 Urine Ketones Trace (NEGATIVE) H 10/04/16 12:00 Urine Blood Negative (NEGATIVE) 10/04/16 12:00 Urine Nitrite Negative (NEGATIVE) 10/04/16 12:00 Urine Bilirubin Negative (NEGATIVE) 10/04/16 12:00 Urine Urobilinogen Negative mg/dL (0.2-1.0) 10/04/16 12:00 Ur Leukocyte Esterase Negative (NEGATIVE) 10/04/16 12:00 RPR Titer Nonreactive (NONREACTIVE) 10/05/16 06:00 HIV 1&2 Antibody Screen Negative 10/04/16 11:05 HIV P24 Antigen Negative 10/04/16 11:05 Labs noted Assessment: 10/07/16 11:09 withdrawal sx Plan: continue detox
[2016-10-07] MEDS: THIAMINE HCL 100 MG TABLET (FP) PO SCH (22:18)
[2016-10-07] MEDS: QUEtiapine FUMARATE 100 MG TABLET (FP) PO SCH (22:18)
[2016-10-07] MEDS: diphenhydrAMINE HCL 50 MG CAPSULE PO PRN (22:19)
[2016-10-08] MEDS ORDERED: METHADONE HCL 10 MG TABLET (FOR DETOX USE ONLY) PO ONE (10:00)
[2016-10-08] MEDS: ACLIDINIUM BROMIDE 400 MCG/INH AERO.POWD IH SCH ×2 (10:14→22:38)
[2016-10-08] MEDS: NICOTINE 21 MG/24 HOURS TOPICAL PATCH TD SCH (10:14)
[2016-10-08] MEDS: BUDESONIDE/FORMETEROL FUMARATE 80/4.5 mcg INHALER IH SCH ×2 (10:14→22:38)
[2016-10-08] MEDS: SERTRALINE HCL 50 MG TABLET (FP) PO SCH (10:15)
[2016-10-08] MEDS: amLODIPine BESYLATE 10 MG TABLET (FP) PO SCH (10:15)
[2016-10-08] MEDS: cloNIDine HCL 0.1 MG TABLET PO SCH ×2 (10:15→22:38)
[2016-10-08] MEDS: PRENATAL VITAMINS W/ FOLIC ACID TABLET (FP) PO SCH (10:15)
[2016-10-08] MEDS: HYDROCHLOROTHIAZIDE 25 MG TABLET (FP) PO SCH (10:15)
[2016-10-08] MEDS: hydrOXYzine PAMOATE 25 MG CAPSULE (FP) PO PRN (10:18)
[2016-10-08] MEDS: CYCLOBENZAPRINE HCL 10 MG TABLET (FP) PO PRN (15:45)
--- NOTE | 2016-10-08 16:44 | PN ---
BHS Progress Note (SOAP) Subjective: Sweating, interrupted sleep, anxious Objective: 10/08/16 16:44 Last Vital Signs Temp Pulse Resp BP Pulse Ox 98.0 F 81 18 108/75 10/08/16 13:48 10/08/16 13:48 10/08/16 13:48 10/08/16 13:48 Laboratory Tests 10/04/16 10/04/16 10/05/16 11:05 12:00 06:00 WBC 7.6 RBC 4.52 Hgb 13.7 Hct 40.3 MCV 89.3 MCH 30.4 MCHC 34.1 RDW 14.6 Plt Count 161 MPV 10.8 Sodium Potassium Chloride Carbon Dioxide Anion Gap BUN Creatinine Creat Clearance w eGFR Random Glucose Calcium Total Bilirubin AST ALT Alkaline Phosphatase Total Protein Albumin Urine Color Hailey Urine Appearance Clear Urine pH 6.0 Ur Specific [place] 1.025 Urine Protein Negative Urine Glucose (UA) Negative Urine Ketones Trace H Urine Blood Negative Urine Nitrite Negative Urine Bilirubin Negative Urine Urobilinogen Negative Ur Leukocyte Esterase Negative RPR Titer HIV 1&2 Antibody Screen Negative HIV P24 Antigen Negative 10/05/16 10/05/16 06:00 06:00 WBC RBC Hgb Hct MCV MCH MCHC RDW Plt Count MPV Sodium 139 Potassium 4.4 Chloride 106 Carbon Dioxide 29 Anion Gap 4 L BUN 8 D Creatinine 0.8 Creat Clearance w eGFR > 60 Random Glucose 72 L Calcium 9.2 Total Bilirubin 0.2 D AST 11 L ALT 13 Alkaline Phosphatase 103 Total Protein 7.1 Albumin 3.8 Urine Color Urine Appearance Urine pH Ur Specific [place] Urine Protein Urine Glucose (UA) Urine Ketones Urine Blood Urine Nitrite Urine Bilirubin Urine Urobilinogen Ur Leukocyte Esterase RPR Titer Nonreactive HIV 1&2 Antibody Screen HIV P24 Antigen Labs noted Assessment: 10/08/16 16:44 Withdrawal symptoms Plan: Continue detox
[2016-10-08] MEDS: THIAMINE HCL 100 MG TABLET (FP) PO SCH (22:38)
[2016-10-08] MEDS: diphenhydrAMINE HCL 50 MG CAPSULE PO PRN (22:38)
[2016-10-08] MEDS: QUEtiapine FUMARATE 100 MG TABLET (FP) PO SCH (22:38)
[2016-10-09] MEDS: CYCLOBENZAPRINE HCL 10 MG TABLET (FP) PO PRN (05:42)
[2016-10-09] MEDS ORDERED: METHADONE HCL 5 MG TABLET (FOR DETOX USE ONLY) PO ONE (06:00)
[2016-10-09 09:53] VITALS: BP 125/88; PULSE 98; TEMP 98.3
--- NOTE | 2016-10-09 12:23 | DS ---
[facility] Detox Discharge Summary Admission Date: 10/04/16 Discharge Date: 10/09/16 - History Present History: Cannabis Dependence, Cocaine Dependence, Opioid Dependence Additional Comments: DETOX COMPLETED. REFERRED TO [facility] FOR MEDICAL FOLLOW UPS NEEDED. Pertinent Past History: HX ANEMIA COPD HTN GENITAL HERPES BIPOLAR DEPRESSION - Physical Exam Results Vital Signs: Vital Signs Temperature 98.3 F 10/09/16 09:52 Pulse Rate 98 H 10/09/16 09:52 Respiratory Rate 20 10/09/16 09:52 Blood Pressure 125/88 10/09/16 09:52 O2 Sat by Pulse Oximetry (%) Pertinent Admission Physical Exam Findings: WITHDRAWAL SX Laboratory Last Values WBC 7.6 K/mm3 (4.0-10.0) 10/05/16 06:00 RBC 4.52 M/mm3 (3.60-5.2) 10/05/16 06:00 Hgb 13.7 GM/dL (10.7-15.3) 10/05/16 06:00 Hct 40.3 % (32.4-45.2) 10/05/16 06:00 MCV 89.3 fl (80-96) 10/05/16 06:00 MCH 30.4 pg (25.7-33.7) 10/05/16 06:00 MCHC 34.1 g/dl (32.0-36.0) 10/05/16 06:00 RDW 14.6 % (11.6-15.6) 10/05/16 06:00 Plt Count 161 K/MM3 (134-434) 10/05/16 06:00 MPV 10.8 fl (7.5-11.1) 10/05/16 06:00 Sodium 139 mmol/L (136-145) 10/05/16 06:00 Potassium 4.4 mmol/L (3.5-5.1) 10/05/16 06:00 Chloride 106 mmol/L (98-107) 10/05/16 06:00 Carbon Dioxide 29 mmol/L (21-32) 10/05/16 06:00 Anion Gap 4 (8-16) L 10/05/16 06:00 BUN 8 mg/dL (7-18) D 10/05/16 06:00 Creatinine 0.8 mg/dL (0.55-1.02) 10/05/16 06:00 Creat Clearance w eGFR > 60 (>60) 10/05/16 06:00 Random Glucose 72 mg/dL (74-106) L 10/05/16 06:00 Calcium 9.2 mg/dL (8.5-10.1) 10/05/16 06:00 Total Bilirubin 0.2 mg/dL (0.2-1.0) D 10/05/16 06:00 AST 11 U/L (15-37) L 10/05/16 06:00 ALT 13 U/L (12-78) 10/05/16 06:00 Alkaline Phosphatase 103 U/L (45-117) 10/05/16 06:00 Total Protein 7.1 g/dl (6.4-8.2) 10/05/16 06:00 Albumin 3.8 g/dl (3.4-5.0) 10/05/16 06:00 Urine Color Hailey 10/04/16 12:00 Urine Appearance Clear 10/04/16 12:00 Urine pH 6.0 (5.0-8.0) 10/04/16 12:00 Ur Specific [place] 1.025 (1.005-1.025) 10/04/16 12:00 Urine Protein Negative (NEGATIVE) 10/04/16 12:00 Urine Glucose (UA) Negative (NEGATIVE) 10/04/16 12:00 Urine Ketones Trace (NEGATIVE) H 10/04/16 12:00 Urine Blood Negative (NEGATIVE) 10/04/16 12:00 Urine Nitrite Negative (NEGATIVE) 10/04/16 12:00 Urine Bilirubin Negative (NEGATIVE) 10/04/16 12:00 Urine Urobilinogen Negative mg/dL (0.2-1.0) 10/04/16 12:00 Ur Leukocyte Esterase Negative (NEGATIVE) 10/04/16 12:00 RPR Titer Nonreactive (NONREACTIVE) 10/05/16 06:00 HIV 1&2 Antibody Screen Negative 10/04/16 11:05 HIV P24 Antigen Negative 10/04/16 11:05 - Treatment Hospital Course: Detox Protocol Followed, Detoxed Safely, Responded well, Discharged Condition Good, Rehab Referral Accepted Patient has Accepted a Rehab Referral to: [facility] - Medication Discharge Medications: Ambulatory Orders Albuterol Sulfate Inhaler - [Ventolin HFA Inhaler -] 2 inh PO Q4H PRN #1 inhaler 12/16/14 Budesonide/Formeterol Fumarate [SYMBICORT 80/4.5mcg -] 1 puff IH BID #1 inhaler 12/16/14 Tiotropium [place] [Spiriva] 1 inh PO DAILY #1 inh 12/16/14 Sertraline HCl [Zoloft] 100 mg PO DAILY #30 tablet 06/27/16 Quetiapine Fumarate [Seroquel] 100 mg PO HS #30 tablet 07/25/16 Sertraline HCl [Zoloft -] 50 mg PO DAILY #30 tablet 07/28/16 Quetiapine Fumarate [Seroquel] 100 mg PO HS #30 tablet 10/04/16 Sertraline HCl [Zoloft -] 50 mg PO DAILY #30 tablet 10/04/16 Amlodipine Besylate [Norvasc -] 10 mg PO DAILY #30 tablet 10/09/16 Hydrochlorothiazide [Hctz -] 25 mg PO DAILY #30 cap 10/09/16 - Diagnosis (1) Cannabis dependence, uncomplicated Status: Acute (2) Cocaine dependence, uncomplicated Status: Acute (3) Nicotine dependence Status: Acute Qualifiers: Nicotine product type: cigarettes Substance use status: in withdrawal Qualified Code(s): F17.213 - Nicotine dependence, cigarettes, with withdrawal (4) Opioid dependence with withdrawal Status: Acute (5) COPD (chronic obstructive pulmonary disease) Status: Chronic Qualifiers: COPD type: unspecified COPD Qualified Code(s): J44.9 - Chronic obstructive pulmonary disease, unspecified (6) HTN (hypertension) Status: Chronic Qualifiers: Hypertension type: essential hypertension Qualified Code(s): I10 - Essential (primary) hypertension (7) History of anemia Status: Suspected (8) Insomnia Status: Acute (9) Substance induced mood disorder Status: Acute - AMA Did Patient Leave Against Medical Advice: No
== END 2016-10-09 09:15 | disposition home or self-care (01) | DRG 773 ==
LOC: YASAS 08:33 → Y3N 10:48
PROVIDERS: ADMIT Internal Medicine; ATTEND Internal Medicine
PROC: HZ2ZZZZ Detoxification Services for Substance Abuse Treatment (ICD-10-PCS; principal; 2016-10-09)
DX: F11.23 Opioid dependence with withdrawal (principal); F14.20 Cocaine dependence, uncomplicated; F12.20 Cannabis dependence, uncomplicated; F17.210 Nicotine dependence, cigarettes, uncomplicated; F19.24 Other psychoactive substance dependence with psychoactive substance-induced mood disorder; F32.9 Major depressive disorder, single episode, unspecified; G47.00 Insomnia, unspecified; I10 Essential (primary) hypertension; J44.9 Chronic obstructive pulmonary disease, unspecified; D64.9 Anemia, unspecified
CPT/HCPCS: 36415; 80053; 81003; 85027; 86593; 87389; 93005; 93010

== ENCOUNTER 2022-11-22 13:14 | Inpatient (IN) | payer OTHER ==
[2022-11-22 13:54] VITALS: BMI 21.2
[2022-11-22] MEDS ORDERED: ALBUTEROL SO4 HFA INHALER IH PRN (15:21)
[2022-11-22] MEDS ORDERED: diazePAM 5 MG TABLET PO PRN (15:21)
[2022-11-22] MEDS ORDERED: guaiFENesin 600 MG TABLET.ER (FP) PO PRN (15:37)
[2022-11-22] MEDS ORDERED: ONDANSETRON *ODT* 4 MG TABLET SL PRN (15:37)
[2022-11-22] MEDS ORDERED: NALOXONE HCL (KLOXXADO) 8 MG SPRAY NS PRN (15:37)
[2022-11-22] MEDS ORDERED: LOPERAMIDE HCL 2 MG CAPSULE PO PRN (15:37)
[2022-11-22] MEDS ORDERED: IBUPROFEN 400 MG TABLET (FP) PO PRN (15:37)
[2022-11-22] MEDS ORDERED: hydrOXYzine PAMOATE 25 MG CAPSULE (FP) PO PRN (15:37)
[2022-11-22] MEDS ORDERED: NALOXONE HCL 0.4 MG/ML VIAL IM PRN (15:37)
[2022-11-22] MEDS ORDERED: BENZOCAINE/MENTHOL (CHLORASEPTIC ) LOZENGE MM PRN (15:37)
[2022-11-22] MEDS ORDERED: POLYETHYLENE GLYCOL (HEALTHYLAX) 3350 17 GM PACKET PO PRN (15:37)
[2022-11-22] MEDS ORDERED: NICOTINE POLACRILEX 2 MG GUM BUC PRN (15:37)
[2022-11-22] MEDS ORDERED: METHOCARBAMOL 500 MG TABLET PO PRN (15:37)
[2022-11-22] MEDS ORDERED: DICYCLOMINE HCL 10 MG CAPSULE PO PRN (15:37)
[2022-11-22] MEDS ORDERED: MAG HYDROX/AL HYDROX/SIMETH 30 ML UNIT-DOSE CUP PO PRN (15:37)
[2022-11-22] MEDS ORDERED: BISMUTH SUBSALICYLATE 524 MG/30 ML PO PRN (15:37)
[2022-11-22] MEDS ORDERED: MAGNESIUM HYDROX 2400MG/30ML ORAL SUSPENSION 30 ML CUP PO PRN (15:37)
[2022-11-22] MEDS ORDERED: BENZONATATE 200 MG CAPSULE PO PRN (15:37)
[2022-11-22] MEDS ORDERED: IBUPROFEN 600 MG TABLET (FP) PO PRN (15:37)
[2022-11-22] MEDS ORDERED: ACETAMINOPHEN 325 MG TABLET (FP) PO PRN (15:37)
[2022-11-22] MEDS ORDERED: amLODIPine BESYLATE 5 MG TABLET (FP) PO ONE (16:45)
[2022-11-22] MEDS ORDERED: HYDROCHLOROTHIAZIDE 12.5 MG CAPSULE (FP) PO ONE (16:45)
[2022-11-22] MEDS ORDERED: amLODIPine BESYLATE 5 MG TABLET (FP) ONE (16:49)
[2022-11-22] MEDS ORDERED: HYDROCHLOROTHIAZIDE 12.5 MG CAPSULE (FP) ONE (16:49)
[2022-11-22] MEDS: HYDROCHLOROTHIAZIDE 25 MG TABLET (FP) PO SCH (16:57)
[2022-11-22] MEDS: amLODIPine BESYLATE 10 MG TABLET (FP) PO SCH (16:57)
[2022-11-22] MEDS: NICOTINE 21 MG/24 HOURS TOPICAL PATCH TD SCH (17:31)
[2022-11-22] MEDS: diazePAM 5 MG TABLET PO SCH ×2 (17:35→22:23)
[2022-11-22] MEDS: THIAMINE HCL 100 MG TABLET (FP) PO SCH (22:22)
[2022-11-22] MEDS: MELATONIN 5 MG TABLETS PO SCH (22:22)
[2022-11-22] MEDS: BUDESONIDE/FORMETEROL FUMARATE 80/4.5 mcg INHALER IH SCH (22:23)
[2022-11-22] MEDS ORDERED: cloNIDine HCL 0.1 MG TABLET PO ONE (22:35)
[2022-11-23] MEDS: diazePAM 5 MG TABLET PO SCH ×4 (05:29→22:28)
[2022-11-23] MEDS ORDERED: cloNIDine HCL 0.1 MG TABLET PO ONE (07:20)
[2022-11-23] MEDS ORDERED: methaDONE HCL 10 MG TABLET PO SCH (09:15)
[2022-11-23] MEDS ORDERED: methaDONE 40 MG, methaDONE 10 MG PO ONE (09:45)
[2022-11-23] MEDS: BUDESONIDE/FORMETEROL FUMARATE 80/4.5 mcg INHALER IH SCH ×2 (10:00→22:26)
[2022-11-23] MEDS: PRENATAL VITAMINS W/ FOLIC ACID TABLET (FP) PO SCH (10:00)
[2022-11-23] MEDS: NICOTINE 21 MG/24 HOURS TOPICAL PATCH TD SCH (10:00)
[2022-11-23] MEDS: HYDROCHLOROTHIAZIDE 25 MG TABLET (FP) PO SCH (10:01)
[2022-11-23] MEDS: amLODIPine BESYLATE 10 MG TABLET (FP) PO SCH (10:01)
[2022-11-23 10:43] LABS: HEMATOCRIT 42.6 % (32.4-45.2); HEMOGLOBIN 14.7 GM/dL (10.7-15.3); MCH 30.6 pg (25.7-33.7); MCHC 34.6 g/dl (32.0-36.0); MEAN CELL VOLUME 88.6 fl (80-96); MEAN PLT VOLUME 9.6 fl (7.5-11.1); PLATELET COUNT 151 10^3/uL (134-434); POTASSIUM 3.8 mmol/L (3.5-5.1); RBC 4.81 M/mm3 (3.60-5.2); WHITE BLOOD COUNT 4.4 K/mm3 (4.0-10.0)
[2022-11-23 10:49] LABS: CALCIUM 9.2 mg/dL (8.5-10.1)
[2022-11-23 10:50] LABS: ALBUMIN 3.7 g/dl (3.4-5.0); BLOOD UREA NITROGEN 13.4 mg/dL (7-18)
[2022-11-23 10:53] LABS: CREATININE 0.7 mg/dL (0.55-1.3)
[2022-11-23 10:54] LABS: TOT PROT 7.2 g/dl (6.4-8.2)
[2022-11-23 10:55] LABS: BILIRUBIN,TOTAL 0.4 mg/dL (0.2-1)
[2022-11-23] MEDS ORDERED: PENICILLIN G BENZATHINE 2,400,000 UNIT/4 ML PFS IM ONE (14:45)
[2022-11-23] MEDS: MELATONIN 5 MG TABLETS PO SCH (22:26)
[2022-11-23] MEDS: THIAMINE HCL 100 MG TABLET (FP) PO SCH (22:26)
[2022-11-24] MEDS ORDERED: methaDONE 40 MG, methaDONE 10 MG PO SCH (06:00)
[2022-11-24] MEDS ORDERED: diazePAM 5 MG TABLET PO SCH (06:00)
[2022-11-24 07:15] VITALS: RESP 16
[2022-11-24 09:09] VITALS: BP 142/87; PULSE 72; TEMP 97.4
[2022-11-24] MEDS: HYDROCHLOROTHIAZIDE 25 MG TABLET (FP) PO SCH (09:40)
[2022-11-24] MEDS: amLODIPine BESYLATE 10 MG TABLET (FP) PO SCH (09:40)
[2022-11-24] MEDS: PRENATAL VITAMINS W/ FOLIC ACID TABLET (FP) PO SCH (09:40)
[2022-11-24] MEDS: NICOTINE 21 MG/24 HOURS TOPICAL PATCH TD SCH (09:40)
[2022-11-24] MEDS: BUDESONIDE/FORMETEROL FUMARATE 80/4.5 mcg INHALER IH SCH (09:41)
[2022-11-25] MEDS ORDERED: diazePAM 5 MG TABLET PO SCH (06:00)
[2022-11-26] MEDS ORDERED: diazePAM 5 MG TABLET PO ONE (06:00)
== END 2022-11-24 10:30 | disposition left against medical advice (07) | DRG 770 ==
LOC: YASAS 13:14 → Y3N 16:24
PROVIDERS: ADMIT Allergy & Immunology; ATTEND Surgery
PROC: HZ2ZZZZ Detoxification Services for Substance Abuse Treatment (ICD-10-PCS; principal; 2022-11-22)
DX: F10.230 Alcohol dependence with withdrawal, uncomplicated (principal); F11.20 Opioid dependence, uncomplicated; F14.20 Cocaine dependence, uncomplicated; F17.210 Nicotine dependence, cigarettes, uncomplicated; F19.24 Other psychoactive substance dependence with psychoactive substance-induced mood disorder; F41.9 Anxiety disorder, unspecified; F32.A Depression, unspecified; I10 Essential (primary) hypertension; J44.9 Chronic obstructive pulmonary disease, unspecified
CPT/HCPCS: 36415; 80053; 81025; 85027; 86593; 86780; 87635; 87811; 93005; 93010

== ENCOUNTER 2022-11-28 18:53 | Inpatient (IN) | payer OTHER ==
[2022-11-28 21:14] VITALS: BMI 23.0
[2022-11-28] MEDS ORDERED: NALOXONE HCL 0.4 MG/ML VIAL IM PRN (23:01)
[2022-11-28] MEDS ORDERED: ACETAMINOPHEN 325 MG TABLET (FP) PO PRN (23:01)
[2022-11-28] MEDS ORDERED: BENZONATATE 200 MG CAPSULE PO PRN (23:01)
[2022-11-28] MEDS ORDERED: NALOXONE HCL (KLOXXADO) 8 MG SPRAY NS PRN (23:01)
[2022-11-28] MEDS ORDERED: MAG HYDROX/AL HYDROX/SIMETH 30 ML UNIT-DOSE CUP PO PRN (23:01)
[2022-11-28] MEDS ORDERED: COLLOIDAL OATMEAL 1 BAR EACH TP PRN (23:01)
[2022-11-28] MEDS ORDERED: POLYETHYLENE GLYCOL (HEALTHYLAX) 3350 17 GM PACKET PO PRN (23:01)
[2022-11-28] MEDS ORDERED: IBUPROFEN 400 MG TABLET (FP) PO PRN (23:01)
[2022-11-28] MEDS ORDERED: guaiFENesin 600 MG TABLET.ER (FP) PO PRN (23:01)
[2022-11-28] MEDS ORDERED: AMMONIUM LACTATE 12% LOTION 225 GM BOTTLE TP PRN (23:01)
[2022-11-28] MEDS ORDERED: MAGNESIUM HYDROX 2400MG/30ML ORAL SUSPENSION 30 ML CUP PO PRN (23:01)
[2022-11-28] MEDS ORDERED: BENZOCAINE/MENTHOL (CHLORASEPTIC ) LOZENGE MM PRN (23:01)
[2022-11-28] MEDS ORDERED: NICOTINE POLACRILEX 4 MG GUM BUC PRN (23:01)
[2022-11-28] MEDS ORDERED: hydrOXYzine PAMOATE 25 MG CAPSULE (FP) PO PRN (23:01)
[2022-11-28] MEDS ORDERED: LOPERAMIDE HCL 2 MG CAPSULE PO PRN (23:01)
[2022-11-28] MEDS ORDERED: cloNIDine HCL 0.1 MG TABLET PO ONE (23:45)
[2022-11-29] MEDS: MELATONIN 5 MG TABLETS PO SCH ×2 (02:54→21:31)
[2022-11-29] MEDS ORDERED: ALBUTEROL SO4 HFA INHALER IH PRN (09:03)
[2022-11-29] MEDS ORDERED: methaDONE HCL 10 MG TABLET PO SCH (09:15)
[2022-11-29] MEDS: PRENATAL VITAMINS W/ FOLIC ACID TABLET (FP) PO SCH (09:40)
[2022-11-29] MEDS: amLODIPine BESYLATE 10 MG TABLET (FP) PO SCH (09:41)
[2022-11-29] MEDS: HYDROCHLOROTHIAZIDE 25 MG TABLET (FP) PO SCH (09:41)
[2022-11-29] MEDS: NICOTINE 21 MG/24 HOURS TOPICAL PATCH TD SCH (09:42)
[2022-11-29] MEDS ORDERED: methaDONE 40 MG, methaDONE 10 MG PO ONE (09:45)
[2022-11-29 11:30] LABS: HEMATOCRIT 44.3 % (32.4-45.2); MCH 30.2 pg (25.7-33.7); MCHC 33.9 g/dl (32.0-36.0); MEAN CELL VOLUME 89.1 fl (80-96); MEAN PLT VOLUME 9.7 fl (7.5-11.1); PLATELET COUNT 169 10^3/uL (134-434); RBC 4.98 M/mm3 (3.60-5.2); RDW 14.2 % (11.6-15.6); WHITE BLOOD COUNT 4.6 K/mm3 (4.0-10.0)
[2022-11-29 11:30] LABS: URINE APPEARANCE CLEAR; URINE BILIRUBIN NEGATIVE (NEGATIVE); URINE COLOR DK YELLOW; URINE GLUCOSE (UA) NEGATIVE (NEGATIVE); URINE KETONE NEGATIVE (NEGATIVE); URINE LEUK ESTERASE NEGATIVE (NEGATIVE); URINE NITRITE NEGATIVE (NEGATIVE); URINE PROTEIN TRACE (NEGATIVE)
[2022-11-29 11:31] LABS: POTASSIUM 3.9 mmol/L (3.5-5.1)
[2022-11-29 11:41] LABS: BLOOD UREA NITROGEN 11.8 mg/dL (7-18); CALCIUM 9.7 mg/dL (8.5-10.1); CREATININE 0.7 mg/dL (0.55-1.3)
[2022-11-29 11:42] LABS: TOT PROT 7.9 g/dl (6.4-8.2)
[2022-11-29 11:44] LABS: BILIRUBIN,TOTAL 0.5 mg/dL (0.2-1)
[2022-11-29] MEDS: hydrOXYzine PAMOATE 50 MG CAPSULE (FP) PO PRN ×2 (16:22→21:32)
[2022-11-29] MEDS: IBUPROFEN 600 MG TABLET (FP) PO PRN (16:23)
[2022-11-29] MEDS: THIAMINE HCL 100 MG TABLET (FP) PO SCH (21:31)
[2022-11-30] MEDS ORDERED: cloNIDine HCL 0.1 MG TABLET PO ONE (05:59)
[2022-11-30] MEDS: methaDONE 40 MG, methaDONE 10 MG PO SCH (06:22)
[2022-11-30] MEDS: IBUPROFEN 600 MG TABLET (FP) PO PRN (09:49)
[2022-11-30] MEDS: hydrOXYzine PAMOATE 50 MG CAPSULE (FP) PO PRN (09:49)
[2022-11-30] MEDS: NICOTINE 21 MG/24 HOURS TOPICAL PATCH TD SCH (09:50)
[2022-11-30] MEDS: PRENATAL VITAMINS W/ FOLIC ACID TABLET (FP) PO SCH (09:50)
[2022-11-30] MEDS: amLODIPine BESYLATE 10 MG TABLET (FP) PO SCH (09:50)
[2022-11-30] MEDS: HYDROCHLOROTHIAZIDE 25 MG TABLET (FP) PO SCH (09:50)
[2022-11-30] MEDS ORDERED: cloNIDine HCL 0.1 MG TABLET PO SCH (10:30)
[2022-11-30] MEDS ORDERED: HYDROCHLOROTHIAZIDE 25 MG TABLET (FP) PO SCH (11:00)
[2022-11-30] MEDS: QUEtiapine FUMARATE 50 MG TABLET PO PRN (21:32)
[2022-11-30] MEDS: THIAMINE HCL 100 MG TABLET (FP) PO SCH (21:32)
[2022-11-30] MEDS: MELATONIN 5 MG TABLETS PO SCH (21:32)
[2022-12-01] MEDS: methaDONE 40 MG, methaDONE 10 MG PO SCH (06:04)
[2022-12-01] MEDS: cloNIDine HCL 0.1 MG TABLET PO PRN (06:04)
[2022-12-01] MEDS: PRENATAL VITAMINS W/ FOLIC ACID TABLET (FP) PO SCH (09:41)
[2022-12-01] MEDS: amLODIPine BESYLATE 10 MG TABLET (FP) PO SCH (09:41)
[2022-12-01] MEDS: hydrOXYzine PAMOATE 50 MG CAPSULE (FP) PO PRN (09:41)
[2022-12-01] MEDS: NICOTINE 21 MG/24 HOURS TOPICAL PATCH TD SCH (09:41)
[2022-12-01] MEDS: HYDROCHLOROTHIAZIDE 25 MG TABLET (FP) PO SCH (12:33)
[2022-12-01] MEDS: THIAMINE HCL 100 MG TABLET (FP) PO SCH (21:24)
[2022-12-01] MEDS: QUEtiapine FUMARATE 50 MG TABLET PO PRN (21:24)
[2022-12-01] MEDS: MELATONIN 5 MG TABLETS PO SCH (21:24)
[2022-12-01] MEDS: IBUPROFEN 600 MG TABLET (FP) PO PRN (21:26)
[2022-12-02] MEDS: cloNIDine HCL 0.1 MG TABLET PO PRN (06:13)
[2022-12-02] MEDS: methaDONE 40 MG, methaDONE 10 MG PO SCH (06:44)
[2022-12-02] MEDS: amLODIPine BESYLATE 10 MG TABLET (FP) PO SCH (09:59)
[2022-12-02] MEDS: NICOTINE 21 MG/24 HOURS TOPICAL PATCH TD SCH (09:59)
[2022-12-02] MEDS: HYDROCHLOROTHIAZIDE 25 MG TABLET (FP) PO SCH (09:59)
[2022-12-02] MEDS: PRENATAL VITAMINS W/ FOLIC ACID TABLET (FP) PO SCH (09:59)
[2022-12-02] MEDS: MELATONIN 5 MG TABLETS PO SCH (21:27)
[2022-12-02] MEDS: THIAMINE HCL 100 MG TABLET (FP) PO SCH (21:27)
[2022-12-02] MEDS: hydrOXYzine PAMOATE 50 MG CAPSULE (FP) PO PRN (21:29)
[2022-12-03] MEDS: methaDONE 40 MG, methaDONE 10 MG PO SCH (06:06)
[2022-12-03] MEDS: HYDROCHLOROTHIAZIDE 25 MG TABLET (FP) PO SCH (09:56)
[2022-12-03] MEDS: amLODIPine BESYLATE 10 MG TABLET (FP) PO SCH (09:56)
[2022-12-03] MEDS: PRENATAL VITAMINS W/ FOLIC ACID TABLET (FP) PO SCH (09:57)
[2022-12-03] MEDS: NICOTINE 21 MG/24 HOURS TOPICAL PATCH TD SCH (09:58)
[2022-12-03] MEDS: cloNIDine HCL 0.1 MG TABLET PO PRN (17:39)
[2022-12-03] MEDS: THIAMINE HCL 100 MG TABLET (FP) PO SCH (21:38)
[2022-12-03] MEDS: MELATONIN 5 MG TABLETS PO SCH (21:39)
[2022-12-03] MEDS: QUEtiapine FUMARATE 50 MG TABLET PO PRN (21:41)
[2022-12-03] MEDS: hydrOXYzine PAMOATE 50 MG CAPSULE (FP) PO PRN (21:41)
[2022-12-04] MEDS: methaDONE 40 MG, methaDONE 10 MG PO SCH (06:16)
[2022-12-04] MEDS: HYDROCHLOROTHIAZIDE 25 MG TABLET (FP) PO SCH (09:53)
[2022-12-04] MEDS: PRENATAL VITAMINS W/ FOLIC ACID TABLET (FP) PO SCH (09:53)
[2022-12-04] MEDS: NICOTINE 21 MG/24 HOURS TOPICAL PATCH TD SCH (09:54)
[2022-12-04] MEDS: amLODIPine BESYLATE 10 MG TABLET (FP) PO SCH (09:54)
[2022-12-04] MEDS ORDERED: PENICILLIN G BENZATHINE 2,400,000 UNIT/4 ML PFS IM SCH (16:00)
[2022-12-04] MEDS: IBUPROFEN 600 MG TABLET (FP) PO PRN (19:23)
[2022-12-04] MEDS: PENICILLIN G BENZATHINE 2,400,000 UNIT/4 ML PFS IM SCH (19:24)
[2022-12-04] MEDS: MELATONIN 5 MG TABLETS PO SCH (21:09)
[2022-12-04] MEDS: QUEtiapine FUMARATE 50 MG TABLET PO PRN (21:09)
[2022-12-04] MEDS: THIAMINE HCL 100 MG TABLET (FP) PO SCH (21:09)
[2022-12-05] MEDS: methaDONE 40 MG, methaDONE 10 MG PO SCH (06:09)
[2022-12-05] MEDS: HYDROCHLOROTHIAZIDE 25 MG TABLET (FP) PO SCH (09:42)
[2022-12-05] MEDS: amLODIPine BESYLATE 10 MG TABLET (FP) PO SCH (09:43)
[2022-12-05] MEDS: PRENATAL VITAMINS W/ FOLIC ACID TABLET (FP) PO SCH (09:44)
[2022-12-05] MEDS: NICOTINE 21 MG/24 HOURS TOPICAL PATCH TD SCH (09:44)
[2022-12-05] MEDS: IBUPROFEN 600 MG TABLET (FP) PO PRN (17:06)
[2022-12-05] MEDS: MELATONIN 5 MG TABLETS PO SCH (21:09)
[2022-12-05] MEDS: THIAMINE HCL 100 MG TABLET (FP) PO SCH (21:09)
[2022-12-05] MEDS: QUEtiapine FUMARATE 100 MG TABLET (FP) PO PRN (21:10)
[2022-12-06] MEDS: methaDONE 40 MG, methaDONE 10 MG PO SCH (06:25)
[2022-12-06] MEDS: NICOTINE 21 MG/24 HOURS TOPICAL PATCH TD SCH (10:19)
[2022-12-06] MEDS: IBUPROFEN 600 MG TABLET (FP) PO PRN ×2 (10:20→16:37)
[2022-12-06] MEDS: amLODIPine BESYLATE 10 MG TABLET (FP) PO SCH (10:20)
[2022-12-06] MEDS: HYDROCHLOROTHIAZIDE 25 MG TABLET (FP) PO SCH (10:20)
[2022-12-06] MEDS: PRENATAL VITAMINS W/ FOLIC ACID TABLET (FP) PO SCH (10:22)
[2022-12-06] MEDS: MELATONIN 5 MG TABLETS PO SCH (21:47)
[2022-12-06] MEDS: QUEtiapine FUMARATE 100 MG TABLET (FP) PO PRN (21:49)
[2022-12-06] MEDS: THIAMINE HCL 100 MG TABLET (FP) PO SCH (21:51)
[2022-12-07] MEDS: methaDONE 40 MG, methaDONE 10 MG PO SCH (06:20)
[2022-12-07] MEDS: cloNIDine HCL 0.1 MG TABLET PO PRN (07:15)
[2022-12-07] MEDS: IBUPROFEN 600 MG TABLET (FP) PO PRN (07:15)
[2022-12-07] MEDS: NICOTINE 21 MG/24 HOURS TOPICAL PATCH TD SCH (10:06)
[2022-12-07] MEDS: amLODIPine BESYLATE 10 MG TABLET (FP) PO SCH (10:06)
[2022-12-07] MEDS: PRENATAL VITAMINS W/ FOLIC ACID TABLET (FP) PO SCH (10:06)
[2022-12-07] MEDS: HYDROCHLOROTHIAZIDE 25 MG TABLET (FP) PO SCH (10:06)
[2022-12-07] MEDS: MELATONIN 5 MG TABLETS PO SCH (21:03)
[2022-12-07] MEDS: QUEtiapine FUMARATE 100 MG TABLET (FP) PO PRN (21:03)
[2022-12-07] MEDS: THIAMINE HCL 100 MG TABLET (FP) PO SCH (21:03)
[2022-12-08] MEDS: methaDONE 40 MG, methaDONE 10 MG PO SCH (06:17)
[2022-12-08] MEDS: NICOTINE 21 MG/24 HOURS TOPICAL PATCH TD SCH (09:56)
[2022-12-08] MEDS: PRENATAL VITAMINS W/ FOLIC ACID TABLET (FP) PO SCH (09:56)
[2022-12-08] MEDS: amLODIPine BESYLATE 10 MG TABLET (FP) PO SCH (09:57)
[2022-12-08] MEDS: HYDROCHLOROTHIAZIDE 25 MG TABLET (FP) PO SCH (09:57)
[2022-12-08] MEDS: IBUPROFEN 600 MG TABLET (FP) PO PRN ×2 (09:58→20:13)
[2022-12-08] MEDS: QUEtiapine FUMARATE 100 MG TABLET (FP) PO PRN (21:04)
[2022-12-08] MEDS: MELATONIN 5 MG TABLETS PO SCH (21:04)
[2022-12-08] MEDS: THIAMINE HCL 100 MG TABLET (FP) PO SCH (21:06)
[2022-12-09] MEDS: methaDONE 40 MG, methaDONE 10 MG PO SCH (06:27)
[2022-12-09] MEDS: amLODIPine BESYLATE 10 MG TABLET (FP) PO SCH (10:09)
[2022-12-09] MEDS: HYDROCHLOROTHIAZIDE 25 MG TABLET (FP) PO SCH (10:09)
[2022-12-09] MEDS: IBUPROFEN 600 MG TABLET (FP) PO PRN (10:09)
[2022-12-09] MEDS: PRENATAL VITAMINS W/ FOLIC ACID TABLET (FP) PO SCH (10:09)
[2022-12-09] MEDS: NICOTINE 21 MG/24 HOURS TOPICAL PATCH TD SCH (10:12)
[2022-12-09] MEDS: MELATONIN 5 MG TABLETS PO SCH (21:28)
[2022-12-09] MEDS: THIAMINE HCL 100 MG TABLET (FP) PO SCH (21:28)
[2022-12-09] MEDS: QUEtiapine FUMARATE 100 MG TABLET (FP) PO PRN (21:28)
[2022-12-10] MEDS: methaDONE 40 MG, methaDONE 10 MG PO SCH (06:11)
[2022-12-10] MEDS: NICOTINE 21 MG/24 HOURS TOPICAL PATCH TD SCH (09:49)
[2022-12-10] MEDS: PRENATAL VITAMINS W/ FOLIC ACID TABLET (FP) PO SCH (09:49)
[2022-12-10] MEDS: amLODIPine BESYLATE 10 MG TABLET (FP) PO SCH (09:49)
[2022-12-10] MEDS: HYDROCHLOROTHIAZIDE 25 MG TABLET (FP) PO SCH (09:49)
[2022-12-10] MEDS: MELATONIN 5 MG TABLETS PO SCH (21:48)
[2022-12-10] MEDS: THIAMINE HCL 100 MG TABLET (FP) PO SCH (21:48)
[2022-12-10] MEDS: QUEtiapine FUMARATE 100 MG TABLET (FP) PO PRN (21:49)
[2022-12-11] MEDS: methaDONE 40 MG, methaDONE 10 MG PO SCH (06:17)
[2022-12-11 06:56] VITALS: RESP 18
[2022-12-11] MEDS: amLODIPine BESYLATE 10 MG TABLET (FP) PO SCH (10:09)
[2022-12-11] MEDS: HYDROCHLOROTHIAZIDE 25 MG TABLET (FP) PO SCH (10:09)
[2022-12-11] MEDS: PRENATAL VITAMINS W/ FOLIC ACID TABLET (FP) PO SCH (10:09)
[2022-12-11] MEDS: NICOTINE 21 MG/24 HOURS TOPICAL PATCH TD SCH (10:09)
[2022-12-11] MEDS: PENICILLIN G BENZATHINE 2,400,000 UNIT/4 ML PFS IM SCH (11:24)
[2022-12-11] MEDS: IBUPROFEN 600 MG TABLET (FP) PO PRN (11:54)
[2022-12-11] MEDS: NAPHAZOLINE/PHENIRAMINE OPHTHALMIC 15 ML BOTTLE OU PRN (14:56)
[2022-12-11] MEDS: MELATONIN 5 MG TABLETS PO SCH (21:39)
[2022-12-11] MEDS: QUEtiapine FUMARATE 100 MG TABLET (FP) PO PRN (21:39)
[2022-12-11] MEDS: THIAMINE HCL 100 MG TABLET (FP) PO SCH (21:39)
[2022-12-12] MEDS: methaDONE 40 MG, methaDONE 10 MG PO SCH (06:36)
[2022-12-12 07:40] VITALS: TEMP 97.3
[2022-12-12] MEDS: NAPHAZOLINE/PHENIRAMINE OPHTHALMIC 15 ML BOTTLE OU PRN (08:26)
[2022-12-12] MEDS: HYDROCHLOROTHIAZIDE 25 MG TABLET (FP) PO SCH (09:02)
[2022-12-12] MEDS: PRENATAL VITAMINS W/ FOLIC ACID TABLET (FP) PO SCH (09:02)
[2022-12-12] MEDS: NICOTINE 21 MG/24 HOURS TOPICAL PATCH TD SCH (09:03)
[2022-12-12] MEDS: amLODIPine BESYLATE 10 MG TABLET (FP) PO SCH (09:03)
[2022-12-12 10:38] VITALS: BP 113/73
[2022-12-12 10:39] VITALS: PULSE 80
== END 2022-12-12 09:30 | disposition home or self-care (01) | DRG 772 ==
LOC: YASAS 18:53 → Y5N 22:53
PROVIDERS: ADMIT Allergy & Immunology; ATTEND Psychiatry & Neurology Pain Medicine
PROC: HZ42ZZZ Group Counseling for Substance Abuse Treatment, Cognitive-Behavioral (ICD-10-PCS; principal; 2022-11-28)
DX: F11.20 Opioid dependence, uncomplicated (principal); F10.20 Alcohol dependence, uncomplicated; F14.20 Cocaine dependence, uncomplicated; F17.210 Nicotine dependence, cigarettes, uncomplicated; F19.282 Other psychoactive substance dependence with psychoactive substance-induced sleep disorder; F33.1 Major depressive disorder, recurrent, moderate; F41.9 Anxiety disorder, unspecified; F32.A Depression, unspecified; I10 Essential (primary) hypertension; J44.9 Chronic obstructive pulmonary disease, unspecified; R76.8 Other specified abnormal immunological findings in serum; Z86.19 Personal history of other infectious and parasitic diseases
CPT/HCPCS: 36415; 73562-TC-RT-FY; 80053; 81003; 81025; 83036; 85027; 86593; 86780; 87635; 99281-25

== ENCOUNTER 2023-07-27 11:10 | Inpatient (IN) | payer OTHER ==
[2023-07-27 12:12] VITALS: BMI 23.0
[2023-07-27] MEDS ORDERED: MAG HYDROX/AL HYDROX/SIMETH 30 ML UNIT-DOSE CUP PO PRN (12:54)
[2023-07-27] MEDS ORDERED: MAGNESIUM HYDROX 2400MG/30ML ORAL SUSPENSION 30 ML CUP PO PRN (12:54)
[2023-07-27] MEDS ORDERED: POLYETHYLENE GLYCOL (HEALTHYLAX) 3350 17 GM PACKET PO PRN (12:54)
[2023-07-27] MEDS ORDERED: BENZOCAINE/MENTHOL (CHLORASEPTIC ) LOZENGE MM PRN (12:54)
[2023-07-27] MEDS ORDERED: NALOXONE HCL (KLOXXADO) 8 MG SPRAY NS PRN (12:54)
[2023-07-27] MEDS ORDERED: LOPERAMIDE HCL 2 MG CAPSULE PO PRN (12:54)
[2023-07-27] MEDS ORDERED: NICOTINE POLACRILEX 2 MG LOZENGE BC PRN (12:54)
[2023-07-27] MEDS ORDERED: NALOXONE HCL 0.4 MG/ML VIAL IM PRN (12:54)
[2023-07-27] MEDS ORDERED: guaiFENesin 600 MG TABLET.ER (FP) PO PRN (12:54)
[2023-07-27] MEDS ORDERED: BENZONATATE 200 MG CAPSULE PO PRN (12:54)
[2023-07-27] MEDS ORDERED: ALBUTEROL SO4 HFA INHALER IH PRN (12:55)
[2023-07-27] MEDS: amLODIPine BESYLATE 10 MG TABLET (FP) PO SCH (14:00)
[2023-07-27] MEDS ORDERED: amLODIPine BESYLATE 5 MG TABLET (FP) ONE (15:33)
[2023-07-27] MEDS: MELATONIN 5 MG TABLETS PO SCH (21:53)
[2023-07-27] MEDS: THIAMINE 100 MG TABLET PO SCH (21:54)
[2023-07-27] MEDS: BUDESONIDE/FORMETEROL FUMARATE 80/4.5 mcg INHALER IH SCH (21:54)
[2023-07-28] MEDS ORDERED: methaDONE HCL 40 MG DISPERSABLE TABLET PO SCH (06:00)
[2023-07-28] MEDS: PRENATAL VITAMINS W/ FOLIC ACID TABLET (FP) PO SCH (09:54)
[2023-07-28 12:35] LABS: POTASSIUM 4.3 mmol/L (3.5-5.1)
[2023-07-28 12:38] LABS: HEMATOCRIT 36.5 % (32.4-45.2); HEMOGLOBIN 12.6 GM/dL (10.7-15.3); MCH 31.2 pg (25.7-33.7); MCHC 34.4 g/dl (32.0-36.0); MEAN CELL VOLUME 90.5 fl (80-96); MEAN PLT VOLUME 10.6 fl (7.5-11.1); PLATELET COUNT 148 10^3/uL (134-434); RBC 4.04 M/mm3 (3.60-5.2); RDW 13.8 % (11.6-15.6); WHITE BLOOD COUNT 3.4 K/mm3 (4.0-10.0)
[2023-07-28 12:40] LABS: CALCIUM 9.1 mg/dL (8.5-10.1)
[2023-07-28 12:41] LABS: ALBUMIN 3.6 g/dl (3.4-5.0); BLOOD UREA NITROGEN 15.4 mg/dL (7-18)
[2023-07-28 12:44] LABS: CREATININE 0.8 mg/dL (0.55-1.3)
[2023-07-28 12:45] LABS: TOT PROT 6.8 g/dl (6.4-8.2)
[2023-07-28 12:46] LABS: BILIRUBIN,TOTAL 0.3 mg/dL (0.2-1)
[2023-07-28 12:48] LABS: PH,URINE 7.5 (5.0-8.0); URINE APPEARANCE CLEAR; URINE BILIRUBIN NEGATIVE (NEGATIVE); URINE COLOR YELLOW; URINE GLUCOSE (UA) NEGATIVE (NEGATIVE); URINE KETONE NEGATIVE (NEGATIVE); URINE LEUK ESTERASE NEGATIVE (NEGATIVE); URINE NITRITE NEGATIVE (NEGATIVE); URINE PROTEIN NEGATIVE (NEGATIVE); URINE UROBILINOGEN 0.2 mg/dL (0.2-1.0)
[2023-07-29] MEDS: IBUPROFEN 600 MG TABLET (FP) PO PRN (10:33)
[2023-07-29] MEDS ORDERED: QUEtiapine FUMARATE 25 MG TABLET ONE (21:43)
[2023-07-29] MEDS: QUEtiapine FUMARATE 50 MG TABLET PO PRN (21:44)
[2023-07-30] MEDS: LIDOCAINE 5% TOPICAL PATCH TP SCH (20:04)
[2023-07-30] MEDS: METHYL SALICYLATE/MENTHOL OINT 30 GM TUBE TP SCH (21:16)
[2023-07-30] MEDS: LIDOCAINE PATCH REMOVAL MC SCH (21:17)
[2023-08-01] MEDS ORDERED: TUBERCULIN PPD 5 TU/0.1ML VIAL ID ONE (11:57)
[2023-08-01] MEDS: TUBERCULIN PPD 5 TU/0.1ML VIAL ID ONE (12:11)
[2023-08-03] MEDS: methaDONE HCL 40 MG DISPERSABLE TABLET PO SCH (06:08)
[2023-08-04] MEDS: ACETAMINOPHEN 325 MG TABLET (FP) PO PRN (09:55)
[2023-08-05] MEDS: IBUPROFEN 400 MG TABLET (FP) PO PRN (06:31)
[2023-08-06] MEDS ORDERED: methaDONE HCL 40 MG DISPERSABLE TABLET PO SCH (10:54)
[2023-08-06] MEDS: AMOX TR/POT CLAV 500MG/125MG TABLETS (FP) PO SCH (18:08)
[2023-08-06] MEDS: BENZOCAINE 20 % GEL TUBE MM PRN (18:09)
[2023-08-06] MEDS: MELATONIN 5 MG TABLETS PO SCH (21:17)
[2023-08-07] MEDS ORDERED: methaDONE HCL 40 MG DISPERSABLE TABLET PO SCH (06:00)
[2023-08-07] MEDS: QUEtiapine FUMARATE 100 MG TABLET (FP) PO SCH (21:08)
[2023-08-13] MEDS ORDERED: methaDONE HCL 40 MG DISPERSABLE TABLET PO SCH (09:57)
[2023-08-14 07:53] VITALS: RESP 18
[2023-08-14] MEDS ORDERED: IBUPROFEN 600 MG TABLET (FP) PO PRN (14:22)
[2023-08-14] MEDS: IBUPROFEN 400 MG TABLET (FP) PO PRN (17:12)
[2023-08-15] MEDS: ACETAMINOPHEN 325 MG TABLET (FP) PO PRN (00:33)
[2023-08-16 06:34] VITALS: BP 115/75; PULSE 79; TEMP 98.2
== END 2023-08-16 10:45 | disposition home or self-care (01) | DRG 772 ==
LOC: YASAS 11:10 → Y5N 15:05
PROVIDERS: ADMIT Allergy & Immunology; ATTEND Psychiatry & Neurology Pain Medicine
PROC: HZ42ZZZ Group Counseling for Substance Abuse Treatment, Cognitive-Behavioral (ICD-10-PCS; principal; 2023-07-27)
DX: F14.20 Cocaine dependence, uncomplicated (principal); F11.20 Opioid dependence, uncomplicated; F17.210 Nicotine dependence, cigarettes, uncomplicated; F19.282 Other psychoactive substance dependence with psychoactive substance-induced sleep disorder; J44.9 Chronic obstructive pulmonary disease, unspecified; I10 Essential (primary) hypertension; K08.89 Other specified disorders of teeth and supporting structures; M17.12 Unilateral primary osteoarthritis, left knee; Z99.89 Dependence on other enabling machines and devices
CPT/HCPCS: 36415; 73560-TC-LT-FY; 80053; 80305; 81003; 85027; 86593; 86780; 93005; 93010